=== PATIENT | female | born 1955 | race Caucasian/White ===

== ENCOUNTER 2022-07-07 13:44 | Emergency (ER) | payer MEDICARE, OTHER, SELFPAY ==
[2022-07-07 14:01] VITALS: BP 138/80; PULSE 73; RESP 20; TEMP 36.4; O2SAT 99
--- NOTE | 2022-07-07 14:13 | ED.GENADULT ---
HPI - General Adult General Chief complaint: Unspecified Stated complaint: sob Time Seen by Provider: 07/07/22 14:10 Source: patient and RN notes reviewed Mode of arrival: ambulatory Limitations: no limitations History of Present Illness HPI narrative: 66-year-old female presents to the [facility] requesting refill on her Dulera. Has tried calling her primary care provider on and Saturday and states they have not called her back or called in the refill. Is having mild symptoms of asthma but states her albuterol has been controlling it. States that she usually has better control with using her Dulera as prescribed. Denies any chest pain. No abdominal pain. Denies fevers. Related Data Home Medications Medication Instructions Recorded Confirmed Nasacort 07/07/22 albuterol sulfate 0.63 mg/3 mL 0.63 mg inhalation Q4H 07/07/22 07/07/22 solution for nebulization albuterol sulfate 90 mcg/actuation inhalation 07/07/22 aerosol inhaler azelastine 137 mcg (0.1 %) nasal intranasal 07/07/22 spray aerosol cholecalciferol (vitamin D3) 50 50 mcg PO DAILY 07/07/22 07/07/22 mcg (2,000 unit) tablet epinephrine 0.3 mg/0.3 mL 07/07/22 injection, auto-injector glucosamine sulfate 500 mg tablet 500 mg PO DAILY 07/07/22 07/07/22 (Glucosamine) levocarnitine 07/07/22 levothyroxine 25 mcg tablet mcg 07/07/22 mometasone-formoterol HFA 100 inhalation 07/07/22 mcg-5 mcg/actuation aerosol inhaler (Dulera) montelukast 10 mg tablet mg 07/07/22 triamcinolone 07/07/22 Allergies Allergy/AdvReac Type Severity Reaction Status Date / Time azithromycin Allergy Verified 07/07/22 14:33 cefdinir [From Omnicef] Allergy Verified 07/07/22 14:33 cephalexin [From Keflex] Allergy Verified 07/07/22 14:33 codeine Allergy Verified 07/07/22 14:33 erythromycin base Allergy Verified 07/07/22 14:33 [From E-Mycin] Penicillins Allergy Verified 07/07/22 14:33 Review of Systems Review of Systems: All systems reviewed & are unremarkable except as noted in HPI and below Constitutional: Constitutional: Reports no additional constitutional complaints, Denies chills and Denies fever(s) Eyes: Eyes: Reports no additional eye complaints ENT: Reports system reviewed and no additional complaints, except as documented Cardiovascular: Cardiovascular: Reports no additional cardiovascular complaints Respiratory: Respiratory: Reports no additional respiratory complaints Gastrointestinal: Gastrointestinal: Reports no additional gastrointestinal complaints Musculoskeletal: Musculoskeletal: Reports no additional musculoskeletal complaints Integumentary/Breasts: Skin/Breast: Reports system reviewed and no additional complaints, except as docu Neurologic: Reports system reviewed and no additional complaints, except as documented Psychiatric: Psychiatric: Reports no additional psychiatric complaints Allergic/Immunologic: Allergic/Immunologic: Reports no additional allergic/immunologic complaints PMFSH Past Medical History Medical History Asthma Hypothyroid Social History Social History (Updated 07/09/22 @ 10:17 by Anny Reese APRN) Gender identity (if verbalized by the patient): Female Comments At the time of my signature, I reviewed and agree with the nursing past medical, surgical, social, and family history. There is no relevant family history pertinent to the patient complaint. Exam Const: General: healthy appearing, no acute distress and alert Nutritional Appearance: well nourished Orientation/consciousness: patient oriented x3 Limitations: no limitations HENMT: Head: normal to inspection Ears: external ears normal, TM's normal bilaterally and EAC's normal Eyes: General: appearance normal, both eyes and all related structures Pupils: Equal, round and reactive pupils present Neck: Neck: normal visual inspection, no lymphadenopathy and no
== END 2022-07-07 14:37 | disposition home or self-care (01) ==
PROVIDERS: Emergency Provider Nurse Practitioner; PCP Family Medicine
DX: J45.909 Unspecified asthma, uncomplicated (principal)
CPT/HCPCS: 99202; 99203; G0463

== ENCOUNTER 2022-10-09 11:55 | Emergency (ER) | payer MEDICARE, OTHER, SELFPAY ==
[2022-10-09 12:56] VITALS: BP 146/86; PULSE 71; RESP 18; TEMP 36.2; O2SAT 98
--- NOTE | 2022-10-09 13:48 | ED.URI ---
HPI - URI/Sore Throat General Chief Complaint: Upper Respiratory Infection Stated Complaint: sorethroat,headache Time Seen by Provider: 10/09/22 13:48 Source: patient Mode of arrival: ambulatory Limitations: no limitations History of Present Illness HPI Narrative: 66-year-old female presents with complaint of nasal congestion, fatigue, sore throat for 2-3 days. Reports that Throat is burning. Grandson that lives with her recently had strep throat. Denies nausea vomiting diarrhea. Not taking any [id number] medications to treat symptoms. All systems reviewed and negative except as noted above. Related Data Home Medications Medication Instructions Recorded Confirmed albuterol sulfate 0.63 mg/3 mL 0.63 mg inhalation Q4H 07/07/22 10/09/22 solution for nebulization azelastine 137 mcg (0.1 %) nasal 2 mcg intranasal DAILY 07/07/22 10/09/22 spray aerosol cholecalciferol (vitamin D3) 50 50 mcg PO DAILY 07/07/22 10/09/22 mcg (2,000 unit) tablet glucosamine sulfate 500 mg tablet 500 mg PO DAILY 07/07/22 10/09/22 (Glucosamine) levothyroxine 25 mcg tablet 25 mcg PO DAILY 07/07/22 10/09/22 mometasone-formoterol HFA 100 2 inh inhalation DAILY 07/07/22 10/09/22 mcg-5 mcg/actuation aerosol inhaler (Dulera) montelukast 10 mg tablet 10 mg PO DAILY 07/07/22 10/09/22 Allergies Allergy/AdvReac Type Severity Reaction Status Date / Time erythromycin base AdvReac Intermediate Vomiting Verified 10/09/22 13:10 [From E-Mycin] Penicillins AdvReac Intermediate Dyspnea / Verified 10/09/22 13:10 SOB azithromycin AdvReac Mild Hives Verified 10/09/22 13:10 cefdinir [From Omnicef] AdvReac Mild Hives Verified 10/09/22 13:10 cephalexin [From Keflex] AdvReac Mild Hives Verified 10/09/22 13:10 codeine AdvReac Mild Hives Verified 10/09/22 13:10 Review of Systems Review of Systems: CONSTITUTIONAL: Denies fever, chills, or sweats. reports fatigue. EYES: Denies visual changes, redness, or discharge. ENT: Reports rhinorrhea, congestion, sore throat. Denies otalgia. CARDIOVASCULAR: Denies chest pain, palpitations, or edema. RESPIRATORY: Denies cough or dyspnea. GASTROINTESTINAL: Denies abdominal pain, nausea, vomiting, or diarrhea. GENITOURINARY: Denies dysuria or hematuria. SKIN: Denies rash or itching. MUSCULOSKELETAL: Denies back pain, joint pain, or myalgia. NEUROLOGIC: Denies headache, numbness, or weakness. PSYCHIATRIC: Denies anxiety or depression. All other systems reviewed are negative, except as documented in HPI. PMFSH Past Medical History Medical History Asthma Hypothyroid Social History Social History (Updated 07/09/22 @ 10:17 by Anny Reese APRN) Gender identity (if verbalized by the patient): Female Comments At time of signature, agree with nursing past medical, surgical, social and family history. There is no relevant family history pertinent to the presenting complaint. Exam Narrative: GENERAL: This is a well-nourished, well-developed patient . Patient ill-appearing but in no distress. HEAD: normocephalic, atraumatic. EYES: PERRL. Sclera clear/white. Vision is grossly intact. EARS: External ears normal, auditory canals clear and without drainage, Fluid to bilateral TMs without erythema. NOSE: External nose normal with Clear nasal drainage, erythema to both nares without swelling. THROAT: Mucous membranes moist, Erythema and swelling to pharynx. NECK: Neck supple, non-tender without lymphadenopathy, masses or thyromegaly. CARDIOVASCULAR: Regular rate and rhythm without murmurs, gallops, or rubs. RESPIRATORY: Clear to auscultation. Breath sounds equal bilaterally. No wheezes, rales, or rhonchi. SKIN: warm, Dry, intact with no suspicious lesions or rash, good texture and turgor. NEURO: awake, alert, and oriented to person, place and time. There were no obvious focal neurologic abnormalities. EXTREMITIES: No joint tendern
== END 2022-10-09 14:03 | disposition home or self-care (01) ==
PROVIDERS: Emergency Provider Nurse Practitioner Family; PCP Family Medicine
DX: J02.9 Acute pharyngitis, unspecified (principal); J45.909 Unspecified asthma, uncomplicated; E03.9 Hypothyroidism, unspecified
CPT/HCPCS: 87081; 87880; 99213; G0463

== ENCOUNTER 2023-04-14 13:27 | Emergency (ER) | payer MEDICARE, OTHER, SELFPAY ==
--- NOTE | 2023-04-14 13:31 | ED.URI ---
HPI - URI/Sore Throat General Chief Complaint: Upper Respiratory Infection Stated Complaint: Sore Throat Time Seen by Provider: 04/14/23 13:31 Source: patient Mode of arrival: ambulatory Limitations: no limitations History of Present Illness HPI Narrative: Edith is a 59-year-old female patient presenting to clinic today with complaints of a sore throat and nasal congestion x1 week. She reports no known fever or chills. No known exposure to anybody with COVID, flu, or strep states that she feels as though there may be something hanging in the back of her throat. MD elicited complaint: sore throat and nasal congestion Related Data Home Medications Medication Instructions Recorded Confirmed albuterol sulfate 0.63 mg/3 mL 0.63 mg inhalation Q4H 07/07/22 04/14/23 solution for nebulization azelastine 137 mcg (0.1 %) nasal 2 mcg intranasal DAILY 07/07/22 04/14/23 spray aerosol cholecalciferol (vitamin D3) 50 50 mcg PO DAILY 07/07/22 04/14/23 mcg (2,000 unit) tablet glucosamine sulfate 500 mg tablet 500 mg PO DAILY 07/07/22 04/14/23 (Glucosamine) levothyroxine 25 mcg tablet 25 mcg PO DAILY 07/07/22 04/14/23 mometasone-formoterol HFA 100 2 inh inhalation DAILY 07/07/22 04/14/23 mcg-5 mcg/actuation aerosol inhaler (Dulera) montelukast 10 mg tablet 10 mg PO DAILY 07/07/22 04/14/23 Allergies Allergy/AdvReac Type Severity Reaction Status Date / Time erythromycin base AdvReac Intermediate Vomiting Verified 04/14/23 13:41 [From E-Mycin] Penicillins AdvReac Intermediate Dyspnea / Verified 04/14/23 13:41 SOB azithromycin AdvReac Mild Hives Verified 04/14/23 13:41 cefdinir [From Omnicef] AdvReac Mild Hives Verified 04/14/23 13:41 cephalexin [From Keflex] AdvReac Mild Hives Verified 04/14/23 13:41 codeine AdvReac Mild Hives Verified 04/14/23 13:41 Review of Systems Review of Systems: Pertinent positives per HPI. Patient denies any fever, chills, rash, headache, visual changes, dizziness, cough, shortness of breath, chest pain, palpitations, nausea, vomiting, diarrhea, constipation, abdominal pain, or any urinary issues. [facility] Past Medical History Medical History Asthma Hypothyroid Social History Social History Gender identity (if verbalized by the patient): Female Comments At the time of my signature, I reviewed and agree with the nursing past medical, surgical, social, and family history. There is no relevant family history pertinent to the patient complaint. Exam Narrative: General: Well-developed, obese, in no apparent distress Head: Normocephalic, atraumatic Eyes: Pupils equally round and reactive to light bilaterally, EOM intact, sclera and conjunctive clear, no discharge, lids normal Ears: TMs intact and congested, ear canals clear, no drainage, grossly hearing normal. Nose: Nares patent, clear discharge, no inflammation, no sinus tenderness. Mouth: Oral pharynx red without lesions or masses, good dentition, MMM. Postnasal drip Neck: Supple, trachea midline, no enlargement of anterior or posterior cervical nodes, no thyroid masses or goiter palpable. Cardio: Regular rate and rhythm, s1 and s2 normal, no murmur appreciated. Resp: Clear to auscultation bilaterally, no rhonchi, rales, wheezing or rubs Course Course Emergency Course: Portions of this record may have been created with voice recognition software. Level of Care: Express Care Visit Vital Signs Vital signs: Vital signs reviewed MDM - URI/Sore Throat MDM Narrative Medical decision making narrative: At the time of visit patient is resting comfortably on exam table. Strep screen was obtained Differential Diagnosis Differential diagnosis: Likely upper respiratory infection, otitis media, sinusitis, viral infection, bronchitis, influenza, pharyngitis and other (COVID) Discharge Plan Discha
[2023-04-14 13:35] VITALS: BP 149/77; PULSE 73; RESP 18; TEMP 36.4; O2SAT 97
== END 2023-04-14 13:53 | disposition home or self-care (01) ==
PROVIDERS: Emergency Provider Nurse Practitioner Family; PCP Family Medicine
DX: J06.9 Acute upper respiratory infection, unspecified (principal); J02.9 Acute pharyngitis, unspecified; J45.909 Unspecified asthma, uncomplicated; E03.9 Hypothyroidism, unspecified
CPT/HCPCS: 87081; 87880; 99213; G0463

== ENCOUNTER 2023-10-31 13:56 | Emergency (ER) | payer MEDICARE, OTHER, SELFPAY ==
--- NOTE | 2023-10-31 14:03 | ED.GENADULT ---
HPI - General Adult General Chief complaint: Upper Respiratory Infection Stated complaint: sorethroat Time Seen by Provider: 10/31/23 14:05 Source: patient, RN notes reviewed and old records reviewed Mode of arrival: ambulatory Limitations: no limitations History of Present Illness HPI narrative: 59-year-old female presents to [facility] with complaints sore throat, congestion, myalgia that started today. Patient states grandson had strep and that she has been around him. MD complaint: sore throat Onset (ago): day(s) (1-2) Related Data Home Medications Medication Instructions Recorded Confirmed albuterol sulfate 0.63 mg/3 mL 0.63 mg inhalation Q4H 07/07/22 10/31/23 solution for nebulization azelastine 137 mcg (0.1 %) nasal 2 mcg intranasal DAILY 07/07/22 10/31/23 spray aerosol cholecalciferol (vitamin D3) 50 50 mcg PO DAILY 07/07/22 10/31/23 mcg (2,000 unit) tablet glucosamine sulfate 500 mg tablet 500 mg PO DAILY 07/07/22 10/31/23 (Glucosamine) levothyroxine 25 mcg tablet 25 mcg PO DAILY 07/07/22 10/31/23 mometasone-formoterol HFA 100 2 inh inhalation DAILY 07/07/22 10/31/23 mcg-5 mcg/actuation aerosol inhaler (Dulera) Allergies Allergy/AdvReac Type Severity Reaction Status Date / Time erythromycin base AdvReac Intermediate Vomiting Verified 04/14/23 13:41 [From E-Mycin] Penicillins AdvReac Intermediate Dyspnea / Verified 04/14/23 13:41 SOB azithromycin AdvReac Mild Hives Verified 04/14/23 13:41 cefdinir [From Omnicef] AdvReac Mild Hives Verified 04/14/23 13:41 cephalexin [From Keflex] AdvReac Mild Hives Verified 04/14/23 13:41 codeine AdvReac Mild Hives Verified 04/14/23 13:41 Review of Systems Constitutional: Constitutional: Reports no additional constitutional complaints, Reports body ache(s), Denies chills, Denies fatigue and Denies fever(s) Eyes: Eyes: Reports no additional eye complaints ENT: Reports system reviewed and no additional complaints, except as documented, Denies vertigo, Denies dizziness, Denies ear discharge, Denies otalgia, Reports nasal congestion, Denies nasal discharge, Denies sinus pain and Reports sore throat Cardiovascular: Cardiovascular: Reports no additional cardiovascular complaints, Denies chest pain, Denies chest pain at rest and Denies lightheadedness Respiratory: Respiratory: Reports no additional respiratory complaints, Denies chest congestion, Reports cough, Denies pain on inspiration and Denies dyspnea Gastrointestinal: Gastrointestinal: Denies abdominal pain Neurologic: Reports system reviewed and no additional complaints, except as documented PMFSH Past Medical History Medical History Asthma Hypothyroid Social History Social History Gender identity (if verbalized by the patient): Female Comments At the time of my signature, I reviewed and agree with the nursing past medical, surgical, social, and family history. There is no relevant family history pertinent to the patient complaint. Exam Const: General: cooperative, healthy appearing, no acute distress and well nourished Nutritional Appearance: well nourished Orientation/consciousness: patient oriented x3 Limitations: no limitations HENMT: Head: normal to inspection and normocephalic Ears: external ears normal, TM's normal bilaterally, mastoids normal and Abnormal EAC present Face/Nose/Sinus: normal facial exam Face and sinus: normal facial exam Mouth: Yes Normal oral and palatal mucosa present, Yes oropharynx normal and Yes moist mucous membranes Throat: tonsils normal, uvula midline, posterior oropharynx abnormal erythema and no uvular edema Eyes: General: appearance normal, both eyes and all related structures Sclera: sclerae normal Pupils: Equal, round and reactive pupils present Resp: Effort & Inspection: normal respiratory effort, able to speak in complete s
[2023-10-31 14:08] VITALS: BP 132/65; PULSE 88; RESP 18; TEMP 36.6; O2SAT 93
== END 2023-10-31 14:42 | disposition home or self-care (01) ==
PROVIDERS: Emergency Provider Registered Nurse; PCP Family Medicine
DX: J02.0 Streptococcal pharyngitis (principal); E03.9 Hypothyroidism, unspecified; Z79.899 Other long term (current) drug therapy
CPT/HCPCS: 87880; 99213; G0463

== ENCOUNTER 2024-08-03 13:36 | Emergency (ER) | payer MEDICARE, OTHER, SELFPAY ==
[2024-08-03 13:47] VITALS: BP 143/71; PULSE 73; RESP 18; TEMP 36.6; O2SAT 96
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
== END 2024-08-03 14:03 | disposition home or self-care (01) ==
PROVIDERS: Emergency Provider Nurse Practitioner Family; PCP Family Medicine
DX: J45.901 Unspecified asthma with (acute) exacerbation (principal); E03.9 Hypothyroidism, unspecified
CPT/HCPCS: 99213; G0463

== ENCOUNTER 2024-12-21 17:29 | Emergency (ER) | payer MEDICARE, OTHER, SELFPAY ==
--- OUTSIDE RECORDS SUMMARY | 2024-12-21 17:31 | XMS_ITS | Referral Summary ---
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 Family Medicine at [address] [place] [address] Pierre Otto MD 12/04/2024 1:15 PM LUMBER CHECKER - 12/04/2024 11:59 PM LUMBER CHECKER Hospital Encounter [facility] Breast Imaging [address] [place] [phone] Breast cancer screening by mammogram Discharge Disposition: Discharge to home or self care 11/02/2024 12:53 PM LUMBER CHECKER - 11/02/2024 11:59 PM LUMBER CHECKER Hospital Encounter [facility] Ultrasound [address] [place] [phone] Fatty liver Discharge Disposition: Discharge to home or self care 10/26/2024 12:45 PM LUMBER CHECKER Office Visit [facility] Family Medicine at [address] [place] [address] Pierre Otto MD Medicare annual wellness visit, subsequent (Primary Dx); Breast cancer screening by mammogram; Class 3 severe obesity due to excess calories without serious comorbidity with body mass index (BMI) of 40.0 to 44.9 in adult (HCC) 09/28/2024 Telephone [facility] Medical [facility] Family Medicine at [address] [place] [address] Pierre Otto MD Symptom Based Call from Last 3 Months Allergies Active Allergy Reactions Criticality Noted Date Comments Azithromycin Rash Medium 05/04/2019 Rash Cefdinir Rash Medium 05/04/2019 Rash Cephalexin Shortness of breath High 05/04/2019 Rash, SOB Codeine Phosphate Vomiting Low 05/04/2019 GI Upset, Vomit Erythromycin Vomiting Low 05/04/2019 GI Upset, vomit Neomycin Sulfate Swelling Medium 05/04/2019 Swelling Other Other (See comments) Low 07/13/2022 Cats, cevallos ??pork Allergy testing [place] and corn products GI upset Penicillamine Shortness of breath High 05/04/2019 Rash, SOB Tramadol Nausea & Vomiting Low 07/17/2023 Medications triamcinolone (NASACORT) 55 mcg nasal inhaler Administer 1 spray into each nostril daily Active levocetirizine (XYZAL) 5 mg tablet Take 1 tablet (5 mg total) by mouth daily Active glucosamine-glory droitin 500-400 mg tablet Take 1 tablet by mouth daily Active cholecalciferol (VITAMIN D-3) 2000 unit capsule Take 1 capsule (2,000 Units total) by mouth nightly Active acetaminophen ER (TYLENOL) 650 mg 8 hr tablet Take 2 tablets (1,300 mg total) by mouth 2 (two) times a day Active vitamin E 400 unit capsule Take 2 capsules (800 Units total) by mouth daily Active calcium carbonate (CALCIUM 600 ORAL) Take 1,200 Units by mouth daily Active magnesium oxide (MAG-OX) 400 mg (241.3 mg elemental magnesium) tabletIndication s:hypomagnesemia Take 1 tablet (400 mg total) by mouth daily Active therapeutic multivitamin (THERA) tabletIndication s:Vitamin Deficiency Prevention Take 1 tablet by mouth daily Active albuterol HFA (PROVENTIL HFA,VENTOLIN HFA,PROAIR HFA) 90 mcg/actuation inhalerIndicatio ns:Moderate persistent asthma without complication Inhale 2 puffs every 6 (six) hours as needed for wheezing 8.5 g 11 4 Active azelastine (ASTELIN) 137 mcg (0.1 %) nasal spray Administer 1 spray into each nostril 2 (two) times a day Use in each nostril as directed 30 mL 3 4 Active montelukast (SINGULAIR) 10 mg tabletIndication s:Seasonal allergies Take 1 tablet (10 mg total) by mouth daily 90 tablet 3 4 Active mometasone-formo terol (DULERA 200) 200-5 mcg/actuation inhalerIndicatio ns:Moderate persistent asthma without complication Inhale 2 puffs 2 (two) times a day Rinse mouth with water after use. Do not swallow. 3 each 3 4 025 Active levothyroxine (SYNTHROID) 25 mcg tabletIndication s:Hypothyroidism , unspecified type Take 1 tablet (25 mcg total) by mouth daily 90 tablet 3 4 Active EPINEPHrine 0.3 mg/0.3 mL auto-injection syringeIndicatio ns:Anaphylaxis Inject 0.3 mL (0.3 mg total) into the muscle as instructed as needed for anaphylaxis Call 911 after use. 1 each 5 4 025 Active albuterol 0.63 mg/3 mL nebulizer solution Take 3 mL (0.63 mg total) by nebulization every 6 (six) hours as needed for wheezing (pt unsure of dose & frequency) 75 mL 1 4 Active Active Problems Problem Noted Date Diagnosed Date Chronic pain of both knees 07/22/2024 Acute right-sided low back pain with right-sided sciatica 04/24/2023 Assessment & Plan (04/24/2023 1:55 PM CDT): Medrol dose pack Tramadol 50 mg tid prn no 30 Right calf pain 04/24/2023 Assessment & Plan (04/24/2023 1:55 PM CDT): Acute pain right calf Order a venous doppler Medicare annual wellness visit, subsequent 05/22 Assessment & Plan (10/26/2024 12:48 PM LUMBER CHECKER): Patient here for annual Medicare wellness visit and for review of complete medical problem list. All the elements of the plan were completed as outlined by CMS. A copy of the prevention plan was given to the patient. I reviewed Medicare Wellness Questionnaire (other physicians involved in care, depression screen, advanced directives), cognitive/memory, and functional assessment. Forms scanned in progress notes. I reviewed and updated the complete problem list, medication list, family history, and immunization records with the patient. I provided preventive counseling and early detection interventions to the patient through health maintenance update and summary of today's office visit. Personalized Prevention Plan Services (PPPS): Opioid Use: No Immunization: Immunization History Administered Date(s) Administered Flucelvax Influenza Quad 11/25/2017 Influenza, Quad, Adjuvantated, Intramuscular 07/11/2020, 08/25/2021 Influenza, Quadrivalent, Cell Culture-based MDCK, Antibiotic Free, Intramuscular 11/01/2018 Influenza, Quadrivalent, High Dose, Preservative Free, Intrr 08/25/2021 Influenza, Quadrivalent, Split, Intramuscular 11/01/2018 Influenza, Trivalent, Preservative Free, Intramuscular 09/08/2015, 07/11/2020 Influenza, Unspecified 02/06/2023 TrustID SARS-CoV-2 Monovalent Vaccination (12+ Yrs) PURPLE 01/09/2021, 01/30/2021 Pneumococcal Conjugate PCV 13 05/22/2022 Pneumococcal Polysaccharide PPV23 11/03/2020 Tdap 12/02/2015 HepatitisB: Not Applicable. Tetanus: Highly Recommended Shingles: Highly Recommended RSV: Highly Recommended Cancer Screening: Mammogram: Not Applicable. PAP Smear: Not Applicable. Prostate Cancer Screening: Not Applicable. Colorectal Cancer Screening: UTD . Lung Cancer Screening: Not Applicable. Others: Diet: Lifestyle education regarding diet discussed. Exercise: Encouraged regular daily exercise. Medication Use: Aspirin use discussion. DEXA Scan: Not Applicable. Glaucoma Screening: Recommended Annually. Audio Screen ordered? No Diabetes: Not Applicable. Annual Labs: Ordered For Today. Abdominal Aortic Aneurysm Screening: Not Applicable. HIV Screening: Not Applicable. Smoking cessation Counselling: Not Applicable. Subsequent Annual Wellness Visit: Annually Assessment & Plan (07/17/2023 11:56 AM CDT): Meds reviewed and reconciled Assessment & Plan (05/22/2022 10:43 AM CDT): Chart reviewed Class 3 severe obesity due t o excess calories without serious comorbidity with body mass index (BMI) of 40.0 to 44.9 in adult 05/22/2022 Assessment & Plan (07/22/2024 10:11 AM CDT): Recommended aggressive Lifestyle modification and weight loss for improving overall weight related health conditions. Follow up in 1 or 3 months for continuing Lifestyle Medicine education and management visit. Recommend Lifestyle/Nutrition/Weight Loss Seminar on every other Tuesdays @ 5pm. Assessment & Plan (07/01/2024 12:03 PM CDT): Recommended aggressive Lifestyle modification and weight loss for improving overall weight related health conditions. Follow up in 1 or 3 months for continuing Lifestyle Medicine education and management visit. Recommend Lifestyle/Nutrition/Weight Loss Seminar on every other Tuesdays @ 5pm. Assessment & Plan (04/24/2023 1:54 PM CDT): Healthy diet Weight loss Assessment & Plan (02/06/2023 9:21 AM CDT): Healthy diet Weight loss Assessment & Plan (05/22/2022 10:44 AM CDT): Healthy diet Regular exercise Weight loss Chronic pain of both hips 11/14/2021 Assessment & Plan (11/14/2021 12:22 PM LUMBER CHECKER): X ray left hip Full code status 05/12/2021 Assessment & Plan (05/12/2021 11:29 AM CDT): Discussed with patient approximately 20minutes End of life issues/Advanced Directives/Healthcare Surrogate. Discussed DNR. Encouraged to discuss further with family and consult business machine mechanic or complete [place] approved form, which I would be glad to assist them with completion. All questions answered. polst form filled out and signed Arthritis 04/07/2018 Assessment & Plan (11/03/2020 1:49 PM LUMBER CHECKER): Patient is well controlled. Continue current treatment. X ray hands Assessment & Plan (05/05/2020 1:48 PM CDT): Tylenol arthritis Prn nsaid prn Moderate persistent asthma without complication 04/07/2018 Assessment & Plan (02/06/2023 9:28 AM CDT): Patient is not well controlled Increase dulera to 200 Assessment & Plan (07/11/2022 10:24 AM CDT): Changed Dulera script back to 2 puffs BID as it was accidentally changed previously. Continue albuterol PRN. Assessment & Plan (11/14/2021 12:13 PM LUMBER CHECKER): Refill albuterol Assessment & Plan (11/03/2020 1:45 PM LUMBER CHECKER): stable Assessment & Plan (05/05/2020 1:47 PM CDT): Albuterol prn Refill epipen Cont singulair Assessment & Plan (11/04/2019 1:29 PM LUMBER CHECKER): Stable No new orders Assessment & Plan (05/06/2019 1:39 PM CDT): Patient is well controlled. Continue current treatment. Hypothyroidism 04/07/2018 Assessment & Plan (07/17/2023 11:56 AM CDT): Tsh and free t4 Assessment & Plan (02/06/2023 9:22 AM CDT): Patient is well controlled. Continue current treatment. Continue synthroid Assessment & Plan (05/22/2022 10:45 AM CDT): tsh and free t4 Assessment & Plan (11/14/2021 12:13 PM LUMBER CHECKER): tsh and free t4 6 months Assessment & Plan (05/12/2021 11:30 AM CDT): Check a tsh and free t4 Assessment & Plan (11/03/2020 1:45 PM LUMBER CHECKER): Lab in 6 months Assessment & Plan (05/05/2020 1:47 PM CDT): lab Assessment & Plan (11/04/2019 1:28 PM LUMBER CHECKER): Check lab in 6 months Assessment & Plan (05/06/2019 1:39 PM CDT): Patient is well controlled. Continue current treatment. Seasonal allergies 04/07/2018 Assessment & Plan (11/14/2021 12:14 PM LUMBER CHECKER): Refill singulair Assessment & Plan (11/03/2020 1:45 PM LUMBER CHECKER): Patient is well controlled. Continue current treatment. Assessment & Plan (11/04/2019 1:29 PM LUMBER CHECKER): Patient is well controlled. Continue current treatment. Resolved Problems Problem Noted Date Diagnosed Date Resolved Date Sore throat 03/11/2023 04/24/2023 Upper respiratory tract infection 03/11/2023 04/24/2023 Assessment & Plan (03/11/2023 8:00 PM CDT): Rapid COVID, flu negative. PCR pending Rapid strep negative. Throat culture pending VSS, no acute respiratory distress, lungs CTAB Symptoms and duration of symptoms more c/w likely viral URI Mucinex for cough and drainage OTC Flonase and zyrtec Discussed the life expectancy of a viral illness is 7 to 10 days. Discussed supportive measures including increase fluid intake, rest, use of Tylenol/Motrin for discomfort and/or fevers. Recommend using drug-free nasal saline every 3-4 hours with frequent nose blowing to alleviate nasal congestion or OTC Flonase and honey +/- warm tea to alleviate cough/sore throat. Instructed to use good handwashing within the household. Patient understands and agrees with treatment plan. Call or return to clinic with any questions or concerns. Patient verbalizes understanding and agreeable to plan. Moderate persistent asthma with exacerbation 04/24/2023 Assessment & Plan (11/13/2022 10:09 AM LUMBER CHECKER): Medrol dose pack, take as directed on package Use albuterol inhaler for wheezing as needed every 4 hours Go to ER if worsening shortness of breath/trouble breathing Upper respiratory tract infection 11/13/2022 02/06/2023 Assessment & Plan (11/13/2022 10:10 AM LUMBER CHECKER): Rapid covid and flu negative PCR pending Doxycycline twice daily for 7 days -Tylenol or Ibuprofen for aches, pains. Take per package directions -Antihistamines like Claritin or Benadryl as needed for drainage. Take per package directions -Delsym as needed for coughing. Follow package directions -Frequent cough drops and lozenges -Increase fluids, especially decaffeinated ones -Sleep with head of bed raised to promote drainage -Flonase to promote drainage -Avoid spreading the virus by remaining at home and away from others until you are fever-free (temperature below 100) for 24 hours. Good handwashing and covering your mouth when coughing are also important. If you are not improving or worsening in the next 5-7 days you must RETURN to the clinic, go to your PCP, or Urgent Care/ER to be SEEN and reevaluated. No further prescriptions or refills will be given by phone without another evaluation. If you develop a high fever 103+, neck stiffness, trouble breathing, chest pain, or other life threatening symptoms GO TO THE ER IMMEDIATELY. Epigastric pain 11/14/2021 05/22/2022 Assessment & Plan (11/14/2021 12:20 PM LUMBER CHECKER): Order a us abdomen Immunizations Name Administration Dates Next Due Flucelvax Influenza Quad 11/25/2017 Influenza, Quad, Adjuvantate d, Intramuscular 08/25/2021,07/11/2020 Influenza, Quadrivalent, Krystal l Culture-based MDCK, Antibiotic Free, Intramuscular 11/01/2018 Influenza, Quadrivalent, Hig h Dose, Preservative Free, Intrr 08/25/2021 Influenza, Quadrivalent, Spl it, Intramuscular 11/01/2018 Influenza, Trivalent, Preser vative Free, Intramuscular 07/11/2020,09/08/2015 Influenza, Unspecified 07/22/2024(Deferr ed: Patient decision),02/06/2023 Pneumococcal Conjugate PCV 13 05/22/2022 Pneumococcal Polysaccharide PPV23 11/03/2020 Tdap 12/02/2015 Social History Tobacco Use Types Packs/Day Years Used Date Smoking Tobacco: Never Cigarettes Smokeless Tobacco: Never Tobacco Cessation:Counseling Given: Not Answered Alcohol Use Standard Drinks/Week Comments Never 0 (1 standard drink = 0.6 oz pur e alcohol) AUDIT-C Answer Date Recorded Q1: How often do you have a drink containing alcohol? Never 07/22/2024 Q2: How many drinks containi ng alcohol do you have on a typical day when you are drinking? Patient does not drink Q3: How often do you have si x or more drinks on one occasion? Never 07/22/2024 PHQ-2 Answer Date Recorded PHQ-2 Total Score (If total score is 3 or more points, staff should administer the PHQ-9) 0 10/22/2024 Comments No Sex and Gender Information Value Date Recorded Sex Assigned at Not on file Legal Sex Female 9:13 PM LUMBER CHECKER Gender Identity Female 05/02/2023 4:53 PM CDT Sexual Orientation Not on file Last Filed Vital Signs Vital Sign Reading Time Taken Comments Blood Pressure 132/86 10/26/2024 12:35 PM LUMBER CHECKER Pulse 73 10/26/2024 12:35 PM LUMBER CHECKER Temperature 36.7 ??C (98.1 ??F) 10/26/2024 1 2:35 PM LUMBER CHECKER Respiratory Rate 18 10/26/2024 12:3 5 PM LUMBER CHECKER Oxygen Saturation 97% 10/26/2024 12: 35 PM LUMBER CHECKER Inhaled Oxygen Concentration - - Weight 107.1 kg (236 lb 1.6 oz) 024 12:35 PM LUMBER CHECKER Height 162.6 cm (5' 4 ) 10/26/2024 12:3 5 PM LUMBER CHECKER Body Mass Index 40.53 10/26/2024 12:35 PM LUMBER CHECKER Plan of Treatment Not on file Procedures Procedure Name Priority Date/Time Associated Diagnosis Comments SCREENING MAMMOGRAM BILATERAL W JANIS Schedule Routine, Read Routine (OP Routine) 12/04/2024 1:59 PM LUMBER CHECKER Breast cancer screening by mammogram US RUQ Schedule Routine, Read Routine (OP Routine) 11/02/2024 1:18 PM LUMBER CHECKER Fatty liver DEXA AXIAL SKELETON BONE DENSITY 1 OR MORE SITES Schedule Routine, Read Routine (OP Routine) 05/01/2023 10:51 AM CDT Menopausal and postmenopausal disorder Asymptomatic menopausal state COLONOSCOPY Routine 12/08/2021 HEPATITIS C ANTIBODY Routine 11/30/2021 10:32 AM LUMBER CHECKER from Last 3 Months or Most Recently Relevant to Health Maintenance Results * SCREENING MAMMOGRAM BILATERAL W JANIS (12/04/2024 1:59 PM LUMBER CHECKER) Anatomical Region Laterality Modality Breast Bilateral Mammography Impressions 12/04/2024 2:02 PM LUMBER CHECKER BI-RADS?? ATLAS category (overall): 1 - Negative There is no mammographic evidence of malignancy. A 1 year screening mammogram is recommended. The patient has been or will be contacted. We recommend annual screening mammography for women at average risk of breast cancer beginning at age 40, based on guidelines of the [employer] (ACR Practice Parameter for the Performance of Screening and Diagnostic Mammography) and [employer]. For women with and elevated risk of breast cancer, please refer to the ACR Practice Parameter for specific screening recommendations. The patient will be entered into a reminder system with a target due date of 1 year for her next screening exam. Narrative 12/04/2024 2:02 PM LUMBER CHECKER SCREENING MAMMOGRAM BILATERAL W JANIS: 12/04/24 The study was acquired using full field digital technology and interpreted from soft copy. 2D digital mammographic views, as well as 3D digital tomosynthesis were performed in the CC and MLO projections. CLINICAL: ??Breast cancer screening by mammogram ??No relevant medical history has been documented for this patient. ??History of breast cancer in Neg Hx. COMPARISONS: 08/06/2023 Screening Mammogram Bilateral W Janis 02/02/2022 SCREENING MAMMOGRAM BILATERAL W JANIS 05/11/2019 Screening Mammogram Bilateral W Janis 09/06/2017 Breast Imaging Screening Outside Reference 03/07/2016 Breast Imaging Screening Outside Reference BREAST TISSUE: The breasts are almost entirely fatty. FINDINGS: No suspicious masses, suspicious calcifications, or other suspicious findings are seen within either breast. There has been no suspicious change. us Pierre Otto MD [facility] [place] MAMMO PROCEDURES Final Resul t * US RUQ (11/02/2024 1:18 PM LUMBER CHECKER) Anatomical Region Laterality Modality Abdomen N/A Ultrasound 11/06/2024 12:3 2 PM LUMBER CHECKER Narrative 11/06/2024 12:33 PM LUMBER CHECKER EXAM DESCRIPTION: ?? US RUQ REASON FOR STUDY: ?? fatty liver for 3 years, follow-up. TECHNIQUE: Ultrasound of the right upper quadrant of the abdomen was performed with grayscale and color doppler. COMPARISON: ?? 01/15/2023 FINDINGS: PANCREAS: ?? Visualized portions of the pancreas are within normal limits. Portions of the pancreatic body and tail are obscured due to bowel gas. LIVER: ?? The liver demonstrates an increase in echotexture with attenuation of the ultrasound beam characteristic of fatty infiltration. ??No cystic or solid mass lesions were seen within the liver. GALLBLADDER: ?? Gallbladder surgically absent. ?? BILIARY: ?? There is no intrahepatic or extrahepatic biliary ductal dilatation. Common bile duct measures ??5 mm ??in diameter. RIGHT KIDNEY: ?? Normal size. Normal echogenicity. No solid mass or cyst. ??No hydronephrosis. ??Measures ??11.6 ??cm in length. OTHER: ?? No other significant findings. IMPRESSION: Fatty infiltration of the liver. Surgical absence of the gallbladder. THIS IS AN ELECTRONICALLY VERIFIED FINAL REPORT 11/06/2024 12:33 PM - Electronically signed by ??Nabil Alvarez M.D. KT: PARMINDER D: ??11/06/2024 12:33 PM T: ??11/06/2024 12:33 PM Report ID: [id number] Reading Location: ??[id number] Procedure Note Nabil Alvarez MD - 11/06/2024 EXAM DESCRIPTION: US RUQ REASON FOR STUDY: fatty liver for 3 years, follow-up. TECHNIQUE: Ultrasound of the right upper quadrant of the abdomen wasperformed with grayscale and color doppler. COMPARISON: 01/15/2023 FINDINGS: PANCREAS: Visualized portions of the pancreas are withinnormal limits. Portions of the pancreatic body and tail are obscured due to bowel gas. LIVER: The liver demonstrates an increase in echotexture withattenuation of the ultrasound beam characteristic of fatty infiltration. No cystic orsolid mass lesions were seen within the liver. GALLBLADDER: Gallbladder surgically absent. BILIARY: There is no intrahepatic or extrahepatic biliary ductaldilatation. Common bile duct measures 5 mm in diameter. RIGHT KIDNEY: Normal size. Normal echogenicity. No solid mass or cyst.No hydronephrosis. Measures 11.6 cm in length. OTHER: No other significant findings. IMPRESSION: Fatty infiltration of the liver. Surgical absence of the gallbladder. THIS IS AN ELECTRONICALLY VERIFIED FINAL REPORT 11/06/2024 12:33 PM - Electronically signed by Nabil Alvarez M.D. KT: PARMINDER Report ID: [id number] Reading Location: [place] [address] us Gina Hill MD IMG US PROCEDURES Final R esult * Dexa Axial Skeleton Bone Density 1 or 2 Site (05/01/2023 10:51 AM CDT) Anatomical Region Laterality Modality Body N/A Mammography 05/01/2023 12:3 3 PM CDT Narrative 05/01/2023 12:33 PM CDT EXAM DESCRIPTION: DEXA AXIAL SKELETON BONE DENSITY 1 OR MORE SITES REASON FOR STUDY: 67 y/o ?? year old ??F ??with given history of screening. ?? Medical Technologist Microbiology/Model: [employer] A (S/N [id number]) CLINICAL INFORMATION: Current height: ??62.5 ??inches ? Maximum height: ??64 ??inches ? Weight: ??226 ??pounds Risk factors: ??Prior fracture and parent with hip fracture COMPARISON: None available FINDINGS: AP LUMBAR SPINE L1-L4: Total BMD is 1.126 g/cm2 T-score is 0.7 LEFT HIP: Total BMD is 0.892 g/cm2 T-score is -0.4 Femoral neck BMD is 0.72 g/cm2 T-score is 4-1.1 ?? FRAX: 10 year risk for a major osteoporotic fracture is 21 %, 10 year risk for a hip fracture is 1.8 % IMPRESSION: Low bone mass REFERENCE: Bone mineral density: ? Normal (T-score above or = -1.0) ? Low bone mass ??(T-score between -1.0 and -2.5) replaces the previously used term osteopenia ? Osteoporosis (T-score = or below -2.5) Medical evaluation for secondary causes of low bone mineral density may be appropriate. FRAX is a World Health Organization validated fracture risk assessment tool that calculates a person's 10 year probability of a major osteoporosis related fracture and hip fracture. ??According to the National Osteoporosis Foundation guidelines, postmenopausal women and men age 50 or older with low bone mass and a 10 year probability of a major osteoporosis related fracture = or greater than 20% or a 10 year probability of a hip fracture = or greater than 3% should be considered for treatment. For further information, including treatment recommendations, please refer to the 2019 ISCD Official Positions (http://www.iscd.org) and the NOF's Clinician's Guide to Prevention and Treatment of Osteoporosis (http://www.nof.org/professionals/clinical-guidelines) THIS IS AN ELECTRONICALLY VERIFIED FINAL REPORT 05/01/2023 12:33 PM - Electronically signed by ??Fabiana Vigil M.D. TW: TW D: ??05/01/2023 12:33 PM T: ??05/01/2023 12:33 PM Report ID: [id number] Reading Location: ??[id number] Procedure Note Fabiana Vigil MD - 05/01/2023 EXAM DESCRIPTION: DEXA AXIAL SKELETON BONE DENSITY 1 OR MORE SITES REASON FOR STUDY: 67 y/o year old F with given history of screening. Medical Technologist Microbiology/Model: [employer] A (S/N [id number]) CLINICAL INFORMATION: Current height: 62.5 inches Maximum height: 64 inches Weight: 226 pounds Risk factors: Prior fracture and parent with hip fracture COMPARISON: None available FINDINGS: AP LUMBAR SPINE L1-L4: Total BMD is 1.126 g/cm2 T-score is 0.7 LEFT HIP: Total BMD is 0.892 g/cm2 T-score is -0.4 Femoral neck BMD is 0.72 g/cm2 T-score is 4-1.1 FRAX: 10 year risk for a major osteoporotic fracture is 21 %, 10 year risk for ahip fracture is 1.8 % IMPRESSION: Low bone mass REFERENCE: Bone mineral density: Normal (T-score above or = -1.0) Low bone mass (T-score between -1.0 and -2.5) replaces thepreviously used term osteopenia Osteoporosis (T-score = or below -2.5) Medical evaluation for secondary causes of low bone mineral density may be appropriate. FRAX is a World Health Organization validated fracture risk assessmenttool that calculates a person's 10 year probability of a major osteoporosisrelated fracture and hip fracture. According to the National OsteoporosisFoundation guidelines, postmenopausal women and men age 50 or older with low bonemass and a 10 year probability of a major osteoporosis related fracture = or greater than 20% or a 10 year probability of a hip fracture = or greaterthan 3% should be considered for treatment. For further information, including treatment recommendations, please referto the 2019 ISCD Official Positions (http://www.iscd.org) and the NOF's Clinician's Guide to Prevention and Treatment of Osteoporosis (http://www.nof.org/professionals/clinical-guidelines) THIS IS AN ELECTRONICALLY VERIFIED FINAL REPORT 05/01/2023 12:33 PM - Electronically signed by Fabiana Vigil M.D. TW: NANDO Report ID: [id number] Reading Location: [place] [address] Rich Mohr DO IMG DXA PROCEDURES Final Result * Colonoscopy (12/08/2021) Anatomical Region Laterality Modality Other Rich Mohr DO ENDOSCOPY PROCEDURES Fin al Result * Hepatitis C antibody (11/30/2021 10:32 AM LUMBER CHECKER) Pathologist [facility] [place] Hep C Ab Nonreactive Nonreactive RONN Comment: Interpretive Data Nonreactive: Antibodies to HCV not detected. Does NOT exclude the possibility of recent exposure to HCV. Equivocal: Equivocal for HCV antibodies. Supplemental molecular testing will be automatically performed to determine infection status in accordance with current CDC screening recommendations. ?? Reactive: Positive for HCV antibodies. ??This may represent current or past HCV infection. Supplemental molecular testing will be automatically performed to determine ??current infection status in accordance with current CDC screening recommendations. Interpretive data was last revised on 2020. Blood 11/30/2021 10:3 2 AM LUMBER CHECKER 11/30/2021 10:36 AM LUMBER CHECKER Gina Hill MD LAB MICROBIOLOGY - GENERA L ORDERABLES Final Result RONN [address] [facility] [place] [address] from Last 3 Months or Most Recently Relevant to Health Maintenance Insurance MEDICARE [facility] MEDICARE [facility] Advance Directives For more information, please contact: [phone] Documents on File Type Date Recorded Patient Coating Line Worker Expl anation ADVANCE DIRECTIVE 05/17/2021 9:19 PM Care Teams Friction Saw Operator Relationship Specialty Start Date End Date Pierre Otto MD [address] [facility] [address] [place] [id number] PCP - General Family Medicine 02/19/24
--- OUTSIDE RECORDS SUMMARY | 2024-12-21 17:31 | XMS_ITS | Clinical Summary ---
Author Organization [facility] Address [address] [place] [address] Care Team Providers Care Client Manager Name Role Phone Pierre Otto MD Primary Care Provider [phone] Allergies Active Allergy Reactions Criticality Noted Date Comments Azithromycin Rash Medium 05/04/2019 Rash Cefdinir Rash Medium 05/04/2019 Rash Cephalexin Shortness of breath High 05/04/2019 Rash, SOB Codeine Phosphate Vomiting Low 05/04/2019 GI Upset, Vomit Erythromycin Vomiting Low 05/04/2019 GI Upset, vomit Neomycin Sulfate Swelling Medium 05/04/2019 Swelling Other Other (See comments) Low 07/13/2022 Cats, cevallos ??pork Allergy testing [place] and corn products GI upset Penicillamine Shortness [...] 05/22 Assessment & Plan (10/26/2024 12:48 PM DESIGN ENGINEER PRODUCTS): Patient here for annual Medicare wellness visit [...] Free, Intramuscular 09/08/2015, 07/11/2020 Influenza, Unspecified 02/06/2023 PushPage SARS-CoV-2 Monovalent Vaccination (12+ Yrs) PURPLE 01/09/2021, [...] 11/14/2021 Assessment & Plan (11/14/2021 12:22 PM DESIGN ENGINEER PRODUCTS): X ray left hip Full code status 05/12/2021 Assessment & Plan (05/12/2021 11:29 AM CDT): Discussed with patient approximately 20minutes End of life issues/Advanced Directives/Healthcare Surrogate. Discussed DNR. Encouraged to discuss further with family and consult spindle frame carver or complete [place] approved form, which I would be glad to assist them with completion. All questions answered. polst form filled out and signed Arthritis 04/07/2018 Assessment & Plan (11/03/2020 1:49 PM DESIGN ENGINEER PRODUCTS): Patient is well controlled. Continue current treatment. [...] PRN. Assessment & Plan (11/14/2021 12:13 PM DESIGN ENGINEER PRODUCTS): Refill albuterol Assessment & Plan (11/03/2020 1:45 PM DESIGN ENGINEER PRODUCTS): stable Assessment & Plan (05/05/2020 1:47 PM CDT): Albuterol prn Refill epipen Cont singulair Assessment & Plan (11/04/2019 1:29 PM DESIGN ENGINEER PRODUCTS): Stable No new orders Assessment & Plan [...] t4 Assessment & Plan (11/14/2021 12:13 PM DESIGN ENGINEER PRODUCTS): tsh and free t4 6 months Assessment & Plan (05/12/2021 11:30 AM CDT): Check a tsh and free t4 Assessment & Plan (11/03/2020 1:45 PM DESIGN ENGINEER PRODUCTS): Lab in 6 months Assessment & Plan (05/05/2020 1:47 PM CDT): lab Assessment & Plan (11/04/2019 1:28 PM DESIGN ENGINEER PRODUCTS): Check lab in 6 months Assessment & Plan (05/06/2019 1:39 PM CDT): Patient is well controlled. Continue current treatment. Seasonal allergies 04/07/2018 Assessment & Plan (11/14/2021 12:14 PM DESIGN ENGINEER PRODUCTS): Refill singulair Assessment & Plan (11/03/2020 1:45 PM DESIGN ENGINEER PRODUCTS): Patient is well controlled. Continue current treatment. Assessment & Plan (11/04/2019 1:29 PM DESIGN ENGINEER PRODUCTS): Patient is well controlled. Continue current treatment. [...] 04/24/2023 Assessment & Plan (11/13/2022 10:09 AM DESIGN ENGINEER PRODUCTS): Medrol dose pack, take as directed on package Use albuterol inhaler for wheezing as needed every 4 hours Go to ER if worsening shortness of breath/trouble breathing Upper respiratory tract infection 11/13/2022 02/06/2023 Assessment & Plan (11/13/2022 10:10 AM DESIGN ENGINEER PRODUCTS): Rapid covid and flu negative PCR pending [...] 05/22/2022 Assessment & Plan (11/14/2021 12:20 PM DESIGN ENGINEER PRODUCTS): Order a us abdomen Encounters Date Type Department Care Team Description 12/21/2024 Nurse Triage [facility] Family Medicine at [address] [place] [address] Pierre Otto MD 12/04/2024 1:15 PM DESIGN ENGINEER PRODUCTS - 12/04/2024 11:59 PM DESIGN ENGINEER PRODUCTS Hospital Encounter [facility] Breast Imaging [address] [place] [phone] Breast cancer screening by mammogram Discharge Disposition: Discharge to home or self care 11/02/2024 12:53 PM DESIGN ENGINEER PRODUCTS - 11/02/2024 11:59 PM DESIGN ENGINEER PRODUCTS Hospital Encounter [facility] Ultrasound [address] [place] [address] Fatty liver Discharge Disposition: Discharge to home or self care 10/26/2024 12:45 PM DESIGN ENGINEER PRODUCTS Office Visit [facility] Family Medicine at [address] [place] [phone] Pierre Otto MD Medicare annual wellness visit, subsequent (Primary Dx); Breast cancer screening by mammogram; Class 3 severe obesity due to excess calories without serious comorbidity with body mass index (BMI) of 40.0 to 44.9 in adult (HCC) 09/28/2024 Telephone [facility] Family Medicine at [address] [address] Pierre Otto MD Symptom Based Call from Last 3 Months Immunizations Name Administration Dates Next Due Flucelvax [...] 05/22/2022 Pneumococcal Polysaccharide PPV23 11/03/2020 Tdap 12/02/2015 Surgical History Surgery Date Site/Laterality Comments TONSILECTOMY, ADENOIDECTOMY, BILATERAL MYRINGOTOMY AND TUBES 11/18/1959 - 11/17/1960 CYST REMOVAL 11/18/1993 - 11/17/1994 pilonidal cyst KNEE ARTHROSCOPY 11/18/2008 - 11/17/2009 Right COLONOSCOPY 11/2021 ESOPHAGOGASTRODUODENOSCOPY 11/18/2021 - 11/17/2022 DILATION AND CURETTAGE OF UTERUS - 11/17/1998 CHOLECYSTECTOMY July 09 Medical History Medical History Date Comments Hypothyroidism Asthma Arthritis Allergic rhinitis Pneumonia h/o 1992 GERD (gastroesophageal reflux disease) Irritable bowel syndrome Food intolerance corn and corn p roducts - GI Upset (noted on allergy test cevallos) Mold exposure 1995 patient states m old exposure to lungs work enviroment tx no hospitization Post-menopause 2007 Vaginal delivery x 2 Cholecystitis Family History Medical History Relation Name Comments Alzheimer's disease Father Elton Diabetes Father Elton Heart disease Father Elton Clotting disorder Mother Deanna Heart disease Mother Deanna Hypertension Mother Deanna Breast cancer Neg Hx Relation Name Status Comments Father Elton Mother Deanna Social History Tobacco Use Types Packs/Day Years [...] on file Legal Sex Female 9:13 PM DESIGN ENGINEER PRODUCTS Gender Identity Female 05/02/2023 4:53 PM CDT Sexual Orientation Not on file Obstetrics History Para Term AB IAB SAB Ectopic Multiple Livin g Live Births 3 2 2 Date Outcome GA Total Labor Labor/2nd/3rd Weight Sex Type Anes PTL Dominique A1 A5 Name Clin Term Term Last Filed Vital Signs Vital Sign Reading Time Taken Comments Blood Pressure 132/86 10/26/2024 12:35 PM DESIGN ENGINEER PRODUCTS Pulse 73 10/26/2024 12:35 PM DESIGN ENGINEER PRODUCTS Temperature 36.7 ??C (98.1 ??F) 10/26/2024 1 2:35 PM DESIGN ENGINEER PRODUCTS Respiratory Rate 18 10/26/2024 12:3 5 PM DESIGN ENGINEER PRODUCTS Oxygen Saturation 97% 10/26/2024 12: 35 PM DESIGN ENGINEER PRODUCTS Inhaled Oxygen Concentration - - Weight 107.1 kg (236 lb 1.6 oz) 024 12:35 PM DESIGN ENGINEER PRODUCTS Height 162.6 cm (5' 4 ) 10/26/2024 12:3 5 PM DESIGN ENGINEER PRODUCTS Body Mass Index 40.53 10/26/2024 12:35 PM DESIGN ENGINEER PRODUCTS Plan of Treatment Health Maintenance Due Date Last Done Comments Hepatitis B Screening 1972 Zoster Vaccine (1 of 2) 2004 Covid-19 Vaccine ( season) 2024 01/30/2021, 01/09/2021 Osteoporosis Screening-Bone Density Scan 05/01/2025 05/01/2023 Influenza Vaccine (#1) 2025 , 08/25/2021, 08/25/2021, Additional history exists Postponed from 07/19/2024 (Patient declined, but will receive in the future) Depression Screening 10/26/2025 10/26/2024, 06/15/2024, 06/15/2024, Additional history exists Fall Risk Assessment 10/26/2025 10/26/2024, 06/15/2024, 07/17/2023, Additional history exists Well Visit 65+ 10/26/2025 10/26/2024, 06/20, 05/22/2022, Additional history exists DTaP/Tdap/Td Vaccine (2 - Td or Tdap) 12/02/2025 12/02/2015 Breast Cancer Screening-Mammogram 12/04/2025 12/04/2024, 08/06/2023, 02/02/2022, Additional history exists Colon Cancer Screening-Colonoscopy 12/08/2031 12/08/2021, 03/25/2014 Hepatitis C Screening Completed 11/30/2021, 018 Colon Cancer Screening-CT Colonography Discontinued 12/08/2021, 03/25/2014 Colon Cancer Screening-DNA Stool Discontinued 12/08/2021, 03/25/2014 Colon Cancer Screening-FIT Discontinued 12/08/2021, Colon Cancer Screening-Sigmoidoscopy Discontinued 12/08/2021, 03/25/2014 Pneumococcal vaccine 65+ Completed 05/22/2022, 10/18 Procedures Procedure Name Priority Date/Time Associated Diagnosis Comments SCREENING MAMMOGRAM BILATERAL W JANIS Schedule Routine, Read Routine (OP Routine) 12/04/2024 1:59 PM DESIGN ENGINEER PRODUCTS Breast cancer screening by mammogram US RUQ Schedule Routine, Read Routine (OP Routine) 11/02/2024 1:18 PM DESIGN ENGINEER PRODUCTS Fatty liver DEXA AXIAL SKELETON BONE DENSITY 1 OR MORE SITES Schedule Routine, Read Routine (OP Routine) 05/01/2023 10:51 AM CDT Menopausal and postmenopausal disorder Asymptomatic menopausal state COLONOSCOPY Routine 12/08/2021 HEPATITIS C ANTIBODY Routine 11/30/2021 10:32 AM DESIGN ENGINEER PRODUCTS from Last 3 Months or Most Recently Relevant to Health Maintenance Results * SCREENING MAMMOGRAM BILATERAL W JANIS (12/04/2024 1:59 PM DESIGN ENGINEER PRODUCTS) Anatomical Region Laterality Modality Breast Bilateral Mammography Impressions 12/04/2024 2:02 PM DESIGN ENGINEER PRODUCTS BI-RADS?? ATLAS category (overall): 1 - Negative There is no mammographic evidence of malignancy. A 1 year screening mammogram is recommended. The patient has been or will be contacted. We recommend annual screening mammography for women at average risk of breast cancer beginning at age 40, based on guidelines of the [employer] (ACR Practice Parameter for the Performance of Screening and Diagnostic Mammography) and [employer]. For women with and elevated risk of breast cancer, please refer to the ACR Practice Parameter for specific screening recommendations. The patient will be entered into a reminder system with a target due date of 1 year for her next screening exam. Narrative 12/04/2024 2:02 PM DESIGN ENGINEER PRODUCTS SCREENING MAMMOGRAM BILATERAL W JANIS: 12/04/24 The [...] no suspicious change. us Pierre Otto MD IMG MAMMO PROCEDURES Final Resul t * US RUQ (11/02/2024 1:18 PM DESIGN ENGINEER PRODUCTS) Anatomical Region Laterality Modality Abdomen N/A Ultrasound 11/06/2024 12:3 2 PM DESIGN ENGINEER PRODUCTS Narrative 11/06/2024 12:33 PM DESIGN ENGINEER PRODUCTS EXAM DESCRIPTION: ?? US RUQ REASON FOR [...] PM T: ??11/06/2024 12:33 PM Report ID: [id number] Reading Location: ??[id number] Procedure Note Nabil Alvarez MD - 11/06/2024 [...] Nabil Alvarez M.D. KT: PARMINDER Report ID: [id number] Reading Location: [id number] us Gina Hill MD IMG US PROCEDURES [...] ??F ??with given history of screening. ?? Six Horse Hitch Driver/Model: Sparkbuy A (S/N [id number]) CLINICAL INFORMATION: Current height: ??62.5 ??inches ? [...] PM T: ??05/01/2023 12:33 PM Report ID: [id number] Reading Location: ??[id number] Procedure Note Fabiana Vigil MD - 05/01/2023 EXAM DESCRIPTION: DEXA AXIAL SKELETON BONE DENSITY 1 OR MORE SITES REASON FOR STUDY: 67 y/o year old F with given history of screening. Six Horse Hitch Driver/Model: Sparkbuy A (S/N [id number]) CLINICAL INFORMATION: Current height: 62.5 inches Maximum [...] Electronically signed by Fabiana Vigil M.D. TW: TW Report ID: [id number] Reading Location: [id number] Rich Mohr DO IMG DXA PROCEDURES Final Result * Colonoscopy (12/08/2021) Anatomical Region Laterality Modality Other Rich Mohr DO ENDOSCOPY PROCEDURES Fin al Result * Hepatitis C antibody (11/30/2021 10:32 AM DESIGN ENGINEER PRODUCTS) Hep C Ab Nonreactive Nonreactive RONN STRAUSS Comment: Interpretive Data Nonreactive: Antibodies to HCV [...] on 2020. Blood 11/30/2021 10:3 2 AM DESIGN ENGINEER PRODUCTS 11/30/2021 10:36 AM DESIGN ENGINEER PRODUCTS Gina Hill MD LAB MICROBIOLOGY - GENERA L ORDERABLES Final Result RONN [address] [facility] Department [place] [address] from Last 3 Months or Most Recently Relevant to Health Maintenance Insurance [facility]ICARE [facility] MEDICARE [facility] MEDICARE [facility] Advance Directives For more information, please contact: [phone] Documents on File Type Date Recorded Patient Ada Accommodation Consultant Expl anation ADVANCE DIRECTIVE 05/17/2021 9:19 PM Care Teams Client Manager Relationship Specialty Start Date End Date Pierre Otto MD [address] [facility] [address] [place] [address] [place] [id number] PCP - General Family Medicine 02/19/24
--- OUTSIDE RECORDS SUMMARY | 2024-12-21 17:31 | XMS_ITS | Continuity of Care Document ---
Author Organization [facility] Address [address] [place] [address] Phone Care Team Providers Care Cad Developer Name Role Phone Charlie Hanna MD Unavailable Unavailable Advance Directives Directive Yes / No Effective Date File Name No Information Encounters Encounter Description Practice Location Reason(s) For Visit Diagnoses Date Provider Providers Copied on Encounter [facility], [address] [place] [address], [id number], tel:[phone] [facility] No Information Mar-0 5-200 3 Jacques Guerra. [address] [place] [address], [id number] , . tel:[phone] Family History Family Member Type Diagnosis Age At Onset No Information Payers Payer name Insurance type Covered republican ID Authoriza tion(s) No Information Social History Type Description Quantity Date Captured Comments Sex Female Smoking Status No Information Chief Complaint And Reason For Visit No Information Reason For Referral Reason For Referral No Information History Of Present Illness Encounter Date Complaint History Of Prese nt Illness No Information Functional Status Date Functional Assessmen t No Information Instructions Date Instruction Additional Infor mation No Information Assessments Type Assessment Date No Information Patient Care Teams Name Effective Dates (start - stop) Status Members No Information
--- OUTSIDE RECORDS SUMMARY | 2024-12-21 17:31 | XMS_ITS | Continuity of Care Document ---
Author Organization [facility], [facility] Address [address] [place] [address] Phone Care Team Providers Care Dough Catcher Name Role Phone Chaitanya OD, Maxwell Unavailable [...] Diagnoses Date Provider Providers Copied on Encounter [facility], [facility], [address] [place], [place], [id number] , tel:[phone] [facility] decreased vision (chief complaint) decreased vision (chief complaint) Age-related nuclear cataract, bilateralPresbyopia 6 Chaitanya Arreola. [address] [facility], [place], [place], [id number] , [place]. tel: [phone] Family History Family Member Type Diagnosis Age [...] thritis Payers Payer name Insurance type Covered green party ID Authortrent yang(s) [facility] [id number] Social History Type Description Quantity Date Captured [...] glare OU. Pt uses Visine PRN OU. decreased vision (chief complaint) Reason For Referral Reason For Referral No [...]
--- OUTSIDE RECORDS SUMMARY | 2024-12-21 17:31 | XMS_ITS | Encounter Summary ---
Author Organization [facility] Healthcare Address [address] [place] [address] Care Team Providers Care Ore Miner Blasting Name Role Phone Pierre Otto MD Primary Care Provider Reason for Visit * Reason Onset Date Comments sinus congestion 12/21/2024 Encounter Details Date Type Department Care Team (Late st Contact Info) Description 12/21/2024 Nurse Triage [facility] Family Medicine at [address] [place] [address] Pierre Otto MD [address] [place] [address] [address] [place] [address] Social History Tobacco Use Types Packs/Day Years Used Date Smoking Tobacco: Never Cigarettes Smokeless Tobacco: Never Alcohol Use Standard Drinks/Week Comments Never 0 [...] on file Legal Sex Female 9:13 PM FREIGHT BROKER AGENT Gender Identity Female 05/02/2023 4:53 PM CDT Sexual Orientation Not on file documented as of this encounter Miscellaneous Notes * Telephone Encounter - Elisabeth Morillo RN - 12/21/2024 2:42 PM FREIGHT BROKER AGENT Onset: x 5 day (s). Pain . Symptoms: patient c/o: sinus congestion and pain, PND-bloody, headache, bilateral face pain and swelling under eyes, pain down back of neck, intermittent dizziness, lightheadedness, productive cough- light green, wheezing, temp 100, SOB since September, usually albuterol, hoarseness. Denies: earache, Relevant Meds: Xyzal, Singulair. Relevant HX of: BROOKE 10/26/24. Seasonal allergies, asthma Home Care Instructions/Education given: Patient verbalizes understanding of the instructions, is comfortable with the plan and will comply with the plan. Disposition per guideline:GO TO OFFICE OR VIDEO VISIT NOW: No appt available in office this week. Patient will make a VCC appt through my chart now. Pharmacy and allergies were verified. Reason for Disposition Redness or swelling on the cheek, forehead, or around the eye Protocols used: Sinus Pain or Udskepyawd-Oyejl-XM GHT BROKER AGENT * Telephone Encounter - Elisabeth Morillo RN - 12/21/2024 2:42 PM FREIGHT BROKER AGENT Regarding: Lightheaded and dizziness ----- Message from Elisabeth Landrum sent at 12/21/2024 2:37 PM FREIGHT BROKER AGENT ----- Symptom Based Call Chief Complaint(s): Lightheaded and dizziness Duration: 5 days What type of symptom(s) is the patient experiencing? Red Flag. Is the patient concerned they are experiencing a medical emergency requiring an ambulance? No Additional Comments: Patient states that she has sinus congestion, cough and running a temp around the 100's. Does message need to be routed? Yes-Action Needed GHT BROKER AGENT documented in this encounter Plan of Treatment Not on file documented as of this encounter Visit Diagnoses Not on filedocumented in this encounter Care Teams Ore Miner Blasting Relationship Specialty Start Date End Date Pierre Otto MD [address] [facility] [address] [place] [address] [place] [address] PCP - General Family Medicine 02/19/24 documented as of this encounter
--- OUTSIDE RECORDS SUMMARY | 2024-12-21 17:33 | XMS_ITS | Continuity of Care Document ---
Author Organization [facility], [facility] Address [address] [place] [address] Phone Care Team Providers Care Flow Coordinator Name Role Phone Chaitanya OD, Maxwell Unavailable [...] Diagnoses Date Provider Providers Copied on Encounter [facility], [facility], [address] [place], [place], [id number] , tel:[phone] [facility] decreased vision (chief complaint) decreased vision (chief complaint) Age-related nuclear cataract, bilateralPresbyopia 6 Chaitanya Arreola. [address] [facility], [place], [place], [id number] , [place]. tel: [phone] Family History Family Member Type Diagnosis Age [...] name Insurance type Covered alliance party ID Authortrent yang(s) [facility] [id number] Social History Type Description Quantity Date Captured [...]
--- OUTSIDE RECORDS SUMMARY | 2024-12-21 17:33 | XMS_ITS | Continuity of Care Document ---
Author Organization [facility] Address [address] [place] [address] Phone Care Team Providers Care Repair Electric Motor Assembler Name Role Phone Charlie Hanna MD Unavailable Unavailable Advance Directives Directive Yes / No Effective Date File Name No Information Encounters Encounter Description Practice Location Reason(s) For Visit Diagnoses Date Provider Providers Copied on Encounter [facility], [address] [place] [address], [id number], tel:[phone] [facility] No Information Mar-0 5-200 3 Jacques Guerra. [address] [place] [address], [id number] , . tel:[phone] Family History Family Member Type Diagnosis Age [...]
[2024-12-21 17:39] VITALS: BP 170/85; PULSE 73; RESP 16; TEMP 36.4; O2SAT 98
--- NOTE | 2024-12-21 18:35 | ED_ITS ---
HPI - General Adult General Chief complaint: Upper Respiratory Infection Stated complaint: sinus History of Present Illness HPI narrative: Edith Paiz is a 68-year-old female who presents today with complaints of having URI symptoms for a couple weeks and now with sinus pressure increased sinus drainage green thick mucus from nose coughing up green mucus now for 10 days she has concern for acute sinusitis Related Data Home Medications ?Medication ?Instructions ?Recorded ?Confirmed ?Last Taken ?Type albuterol sulfate 0.63 mg/3 mL 0.63 mg inhalation Q4H 07/07/22 08/03/24 Unknown History solution for nebulization azelastine 137 mcg (0.1 %) nasal 2 mcg intranasal DAILY 07/07/22 08/03/24 Unknown History spray cholecalciferol (vitamin D3) 50 50 mcg PO DAILY 07/07/22 08/03/24 Unknown History mcg (2,000 unit) tablet glucosamine sulfate 500 mg tablet 500 mg PO DAILY 07/07/22 08/03/24 Unknown History (Glucosamine) levothyroxine 25 mcg tablet 25 mcg PO DAILY 07/07/22 08/03/24 Unknown History mometasone-formoterol HFA 100 2 inh inhalation DAILY 07/07/22 08/03/24 Unknown History mcg-5 mcg/actuation aerosol inhaler (Dulera) montelukast 10 mg tablet 10 mg PO HS 08/03/24 08/03/24 Unknown History Allergies Allergy/AdvReac Type Severity Reaction Status Date / Time erythromycin base (From AdvReac Intermediate Vomiting Verified 12/21/24 18:14 E-Mycin) Penicillins AdvReac Intermediate Dyspnea / Verified 12/21/24 18:14 SOB azithromycin AdvReac Mild Hives Verified 12/21/24 18:14 cefdinir (From Omnicef) AdvReac Mild Hives Verified 12/21/24 18:14 cephalexin (From Keflex) AdvReac Mild Hives Verified 12/21/24 18:14 codeine AdvReac Mild Hives Verified 12/21/24 18:14 Review of Systems Review of Systems: All systems reviewed & are unremarkable except as noted in HPI and below PMFSH Past Medical History Medical History Hypothyroid Asthma Social History Social History Gender identity (if verbalized by the patient): Female Exam Narrative: GENERAL: Well-appearing, well-nourished, and in no acute distress. HEAD: Normocephalic, atraumatic. EYES: PERRLA and EOMI. ENT: Nares clear, no rhinorrhea or epistaxis. Mucous membranes moist. + maxillary pain with palpation Oropharynx without tonsillar hypertrophy exudate or other lesions. Bilateral TMs pearly lozoya non bulging NECK: Supple. No adenopathy or masses. No carotid bruits or JVD CHEST: Clear to auscultation. No respiratory distress. No wheezes rales or rhonchi HEART: Regular rate and rhythm. No murmur heard. Normal peripheral pulses. ABDOMEN: Soft, nontender, nondistended, normal active bowel sounds. EXTREMITIES: Normal range of motion. No edema. SKIN: Warm, dry, no rash. NEURO: No focal deficits. Alert and oriented x3. PSYCH: Normal mood and affect. Course Course Level of Care: Express Care Visit Vital Signs Vital signs: Vital Signs Temperature 36.4 C L 12/21/24 17:39 Pulse Rate 73 12/21/24 17:39 Respiratory Rate 16 12/21/24 17:39 Blood Pressure 170/85 H 12/21/24 17:39 Pulse Oximetry 98 12/21/24 17:39 Oxygen Delivery Room Air 12/21/24 17:39 Temperature 36.4 C L 12/21/24 17:39 Pulse Rate 73 12/21/24 17:39 Respiratory Rate 16 12/21/24 17:39 Blood Pressure 170/85 H 12/21/24 17:39 Pulse Oximetry 98 12/21/24 17:39 Oxygen Delivery Room Air 12/21/24 17:39 Medical Decision Making [facility] Narrative Medical decision making narrative: This 68 year old patient presents with symptoms most suggestive of acute sinusitis.. Lungs are clear bilaterally without any respiratory distress or accessory muscle use. Will start treatment with Doxycycline BID Close PCP follow up Return precautions discussed covid/flu - NEGATIVE Patient discharged home in stable condition with expectant management. Return precautions were provided. Procedures: Pulse oximetry interpretation - not hypoxic. Review of medical records. DISPOSITION: Discharged home in stable condition. IMPRESSION: Acute sinusitis Medical Records Medical records reviewed: Yes I reviewed the external patient's medical records. Vital Signs Vital Signs: Vital Signs Temperature 36.4 C L 12/21/24 17:39 Pulse Rate 73 12/21/24 17:39 Respiratory Rate 16 12/21/24 17:39 Blood Pressure 170/85 H 12/21/24 17:39 Pulse Oximetry 98 12/21/24 17:39 Oxygen Delivery Room Air 12/21/24 17:39 Temperature 36.4 C L 12/21/24 17:39 Pulse Rate 73 12/21/24 17:39 Respiratory Rate 16 12/21/24 17:39 Blood Pressure 170/85 H 12/21/24 17:39 Pulse Oximetry 98 12/21/24 17:39 Oxygen Delivery Room Air 12/21/24 17:39 vitals reviewed by me Lab Data Lab results reviewed: Yes I reviewed the patient's lab results. Discharge Plan Discharge Clinical Impression: Acute bacterial sinusitis Patient Disposition: Home, Self-Care Condition: Stable Instructions: Antibiotic Form Additional Instructions: Start taking the doxycycline twice a day for 1 week. Start taking the Mucinex twice a day for 10 days. Continue to use sinus rinses as we discussed you may also take Tylenol Motrin as needed for pain body aches. Please follow-up with your primary care doctor in the next 5-7 days to ensure your symptoms are improving. If he develops any worsening symptoms such as chest pain, shortness of breath, difficulty breathing, vomiting proceed to the ER. Patient Language: Sinhala Prescriptions: New doxycycline hyclate 100 mg capsule 100 mg PO BID Qty: 14 0RF guaifenesin [Mucinex] 1,200 mg tablet extended release 12hr 1,200 mg PO BID Qty: 20 0RF No Action montelukast 10 mg tablet 10 mg PO HS albuterol sulfate 2.5 mg /3 mL (0.083 %) solution for nebulization 2.5 mg inhalation Q6H PRN (Reason: shortness of breath or wheezing) Qty: 90 0RF albuterol sulfate 0.63 mg/3 mL Solution For Nebulization 0.63 mg INHALATION Q4H glucosamine sulfate [Glucosamine] 500 mg Tablet 500 mg PO DAILY Rx Instructions: administer with a meal levothyroxine 25 mcg tablet 25 mcg PO DAILY azelastine 137 mcg (0.1 %) aerosol,spray 2 mcg INTRANASAL DAILY cholecalciferol (vitamin D3) 50 mcg (2,000 unit) Tablet 50 mcg PO DAILY Dulera 100-5 mcg/actuation HFA aerosol inhaler 2 inh INHALATION DAILY Follow-up/Referrals: Fam,MD Pierre [Primary Care Provider] - Time of Disposition: 18:40
[2024-12-21 18:38] LABS: EDCOVIDSCREEN Negative (Negative); EDINFLUASCREEN Negative (Negative); EDINFLUBSCREEN Negative (Negative)
== END 2024-12-21 18:43 | disposition home or self-care (01) ==
PROVIDERS: Emergency Provider Nurse Practitioner Family; PCP Family Medicine
DX: J01.90 Acute sinusitis, unspecified (principal); Z20.822 Contact with and (suspected) exposure to COVID-19; E03.9 Hypothyroidism, unspecified; J45.909 Unspecified asthma, uncomplicated
CPT/HCPCS: 87426; 87804; 99213; G0463

== ENCOUNTER 2025-03-04 13:42 | Emergency (ER) | payer MEDICARE, OTHER, SELFPAY ==
--- NOTE | ~2025-03-04 | XR_ITS ---
EXAMINATION: XR chest 2V DATE: 03/04/2025 14:13 INDICATION: Cough and wheezing TECHNIQUE: frontal and lateral views of the chest were obtained. COMPARISON: None FINDINGS: Indeterminate nodular opacity at the right lung base. Mild airspace opacities in the left lower lung zone and the right mid lung zones cephalad to the minor fissure. Oblique thin linear discoid atelecta sis in the right midlung zone. No pleural effusion or pneumothorax. Cardiomegaly. Mild to moderate th oracic and upper lumbar spondylosis. IMPRESSION: 1. Opacities in the left lower right mid lung zones which could represent atelectasis or pneumonia. 2. Indeterminate nodular opacity right lung base which appears relatively conspicuous suggesting this may be calcified but would recommend chest CT for more definitive determination. Reviewed, dictated and finalized at location A. IMPRESSION: 1. Opacities in the left lower right mid lung zones which could represent atele ctasis or pneumonia. 2. Indeterminate nodular opacity right lung base which appears relatively consp icuous suggesting this may be calcified but would recommend chest CT for more d efinitive determination.
--- NOTE | 2025-03-04 13:48 | ED_ITS ---
HPI - URI/Sore Throat General Chief Complaint: Upper Respiratory Infection Stated Complaint: URI Time Seen by Provider: 03/04/25 13:48 Source: patient and RN notes reviewed Mode of arrival: ambulatory Limitations: no limitations History of Present Illness HPI Narrative: 69-year-old female presents Express Care complaining of upper respiratory symptoms for 6 days. Patient knows she was increasingly more fatigued and then started to develop sinus pressure, sore throat, productive cough, voice hoarseness, and body aches. She reports feeling wheezy however it is controlled with her prescribed inhaler. She denies any chest pain shortness of breath. She denies any fevers, chills, nausea, vomiting, diarrhea. Patient states that she is coughing up yellow sputum. 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 She is a nonsmoker Related Data Home Medications ?Medication ?Instructions ?Recorded ?Confirmed ?Last Taken ?Type albuterol sulfate 0.63 mg/3 mL 0.63 mg inhalation Q4H 07/07/22 08/03/24 Unknown History solution for nebulization azelastine 137 mcg (0.1 %) nasal 2 mcg intranasal DAILY 07/07/22 08/03/24 Unknown History spray cholecalciferol (vitamin D3) 50 50 mcg PO DAILY 07/07/22 08/03/24 Unknown History mcg (2,000 unit) tablet glucosamine sulfate 500 mg tablet 500 mg PO DAILY 07/07/22 08/03/24 Unknown History (Glucosamine) levothyroxine 25 mcg tablet 25 mcg PO DAILY 07/07/22 08/03/24 Unknown History mometasone-formoterol HFA 100 2 inh inhalation DAILY 07/07/22 08/03/24 Unknown History mcg-5 mcg/actuation aerosol inhaler (Dulera) montelukast 10 mg tablet 10 mg PO HS 08/03/24 08/03/24 Unknown History Allergies Allergy/AdvReac Type Severity Reaction Status Date / Time azithromycin Allergy Mild Hives Verified 03/04/25 13:52 cefdinir (From Omnicef) Allergy Mild Hives Verified 03/04/25 13:52 cephalexin (From Keflex) Allergy Mild Hives Verified 03/04/25 13:52 codeine Allergy Mild Hives Verified 03/04/25 13:52 erythromycin base (From AdvReac Intermediate Vomiting Verified 03/04/25 13:52 E-Mycin) Penicillins AdvReac Intermediate Dyspnea / Verified 03/04/25 13:52 SOB Review of Systems 2 Review of Systems: CONSTITUTIONAL: Denies fever, chills, or sweats. Positive for fatigue and body aches EYES: Denies visual changes, redness, or discharge. ENT: Denies rhinorrhea, or otalgia. Positive for congestion, sore throat, voice hoarseness, sinus pressure. CARDIOVASCULAR: Denies chest pain, palpitations, or edema. RESPIRATORY: Positive for productive cough and wheezing, negative for dyspnea. GASTROINTESTINAL: Denies abdominal pain, nausea, vomiting, or diarrhea. GENITOURINARY: Denies dysuria or hematuria. SKIN: Denies rash or itching. MUSCULOSKELETAL: Denies back pain, joint pain, or myalgia. NEUROLOGIC: Denies headache, numbness, or weakness. PSYCHIATRIC: Denies anxiety or depression. All other systems reviewed are negative, except as documented in HPI. [facility] Past Medical History Medical History Hypothyroid Asthma Social History Social History Gender identity (if verbalized by the patient): Female Comments At the time of my signature, I reviewed and agree with the nursing past medical, surgical, social, and family history. There is no relevant family history pertinent to the patient complaint. Exam Narrative: GENERAL: This is a well-nourished, well-developed adult, in no apparent distress. They are non ill-appearing, nontoxic appearing. HEAD: normocephalic, atraumatic. EYES: Sclera clear/white. Vision is grossly intact. Extraocular movements intact EARS: External ears normal, auditory canals clear and without drainage, TMs normal without perforation. Hearing grossly intact. NOSE: External nose normal with thick nasal discharge, nasal turbinates are edematous bilaterally, no rhinorrhea. Maxillary sinus tenderness to palpation. THROAT: Mucous membranes moist, posterior pharynx erythemic without swelling. Uvula midline, postnasal drip present. NECK: Neck supple, mild tenderness with mild cervical lymphadenopathy, no masses or thyromegaly. CARDIOVASCULAR: Regular rate and rhythm without murmurs, gallops, or rubs. RESPIRATORY: Expiratory wheezing to the right upper lobe, otherwise lung sounds are clear throughout. Breath sounds equal bilaterally. Normal respiratory rate, respiratory effort is nonlabored, no respiratory distress, no retractions SKIN: warm, Dry, intact with no suspicious lesions or rash, good texture and turgor. NEURO: awake, alert, and oriented to person, place and time. There were no obvious focal neurologic abnormalities. EXTREMITIES: No joint tenderness, effusion, or edema noted. Course Course Emergency Course: Patient is aware of diagnosis, understands and agrees to treatment plan. Anticipatory guidance given. Patient agrees to follow-up as directed and is aware of reasons to seek care at the emergency department. Portions of this record may have been created with voice recognition software Level of Care: Express Care Visit Vital Signs Vital signs: Vital Signs Temperature 97.8 F 03/04/25 13:51 Pulse Rate 68 03/04/25 13:51 Respiratory Rate 18 03/04/25 13:51 Blood Pressure 155/79 H 03/04/25 13:51 Pulse Oximetry 97 03/04/25 13:51 Oxygen Delivery Room Air 03/04/25 13:51 Temperature 97.8 F 03/04/25 13:51 Pulse Rate 68 03/04/25 13:51 Respiratory Rate 18 03/04/25 13:51 Blood Pressure 155/79 H 03/04/25 13:51 Pulse Oximetry 97 03/04/25 13:51 Oxygen Delivery Room Air 03/04/25 13:51 Reviewed MDM - URI/Sore Throat MDM Narrative Medical decision making narrative: COVID and flu swabs were negative. Chest x-ray did show evidence of pneumonia. Given the patient's symptoms will treat empirically with levofloxacin. The patient has multiple drug allergies to penicillins, macrolides, and cephalosporins, and she reports having history of asthma and scarring in her lungs. Discussed x-ray findings with patient and advised her to follow-up with her primary care provider about the nodular opacity noted on her chest x-ray. Discussed physical exam findings. Advised supportive measures and signs/symptoms to go to the ER. Pt is appropriate for outpt treatment and f/u. Differential Diagnosis Differential diagnosis: Likely other (Pneumonia, bronchitis, upper respiratory infection) Lab Data Attestation: I reviewed the patient's lab results. Labs: Lab Results 03/04/25 Range/Units 14:27 POC Influenza A Ag Negative (Negative) POC Influenza B Ag Negative (Negative) POC SARS CoV-2 Ag Negative (Negative) Imaging Data Radiologist's impression: ITS Impressions Chest X-Ray 03/04/25 14:15 IMPRESSION: 1. Opacities in the left lower right mid lung zones which could represent atelectasis or pneumonia. 2. Indeterminate nodular opacity right lung base which appears relatively conspicuous suggesting this may be calcified but would recommend chest CT for more definitive determination. Critical Care Time Critical Care Time Critical Care Time: No Discharge Plan Discharge Clinical Impression: Pneumonia Qualifiers: Pneumonia type: due to unspecified organism Laterality: unspecified laterality Lung location: unspecified part of lung Qualified Code(s): J18.9 - Pneumonia, unspecified organism Patient Disposition: Home Condition: Stable Instructions: Antibiotic Form, Community Acquired Pneumonia (ED) Additional Instructions: Take antibiotics as directed until complete. eat small frequent meals. Get lots of rest and drink fluids. Alternate Tylenol and ibuprofen for pain/fever [id number] cough medication can cause drowsiness, take according to package directions If you have nasal congestion, you can take Zyrtec, Claritin along with Flonase spray Continue to use your inhaler prescribed to you for any wheezing. Follow-up with your primary care doctor about your chest x-ray results. Call your Primary Care Doctor and make a follow-up appointment in 3 days. Go to the ER for difficulty breathing, worsening weakness, worsening symptoms or any other concerns Patient Language: Pashto Prescriptions: New levofloxacin 750 mg tablet 750 mg PO DAILY 5 Days Qty: 5 0RF No Action montelukast 10 mg tablet 10 mg PO HS albuterol sulfate 0.63 mg/3 mL Solution For Nebulization 0.63 mg INHALATION Q4H glucosamine sulfate [Glucosamine] 500 mg Tablet 500 mg PO DAILY Rx Instructions: administer with a meal levothyroxine 25 mcg tablet 25 mcg PO DAILY azelastine 137 mcg (0.1 %) aerosol,spray 2 mcg INTRANASAL DAILY cholecalciferol (vitamin D3) 50 mcg (2,000 unit) Tablet 50 mcg PO DAILY Dulera 100-5 mcg/actuation HFA aerosol inhaler 2 inh INHALATION DAILY Follow-up/Referrals: Fam,MD Pierre [Primary Care Provider] - Time of Disposition: 14:34
[2025-03-04 13:51] VITALS: BP 155/79; PULSE 68; RESP 18; TEMP 36.6; O2SAT 97
--- OUTSIDE RECORDS SUMMARY | 2025-03-04 13:58 | XMS_ITS | Continuity of Care Document ---
Author Organization [facility], [facility] Address [address] [place] [address] Phone Care Team Providers Care Discharge Coordinator Name Role Phone Chaitanya OD, Maxwell Unavailable Unavailable Allergies, Adverse Reactions, Alerts Substance Reaction Status Criticality azithromycin Active No Information codeine Active No Information neomycin Active No Information cefdinir Active No Information erythromycin base Active No Informa tion CEPHALEXIN MONOHYDRATE Active No In formation PENICILLIN Active No Information Medications Medication Instructions Dosage Effective Dates (start - stop) Status Comments Visine 0.05 % eye drops instill 1 drop PRN OU - Active DULERA (unknown strength) Not Available - Active LEVOTHYROXINE SODIUM (unknown strength) Not Available - Active XYZAL (unknown strength) Not Available - Active ASTELIN (unknown strength) Not Available - Active NASACORT AQ (unknown strength) Not Available - Active Procedures Procedure Date EYE EXAM, NEW PATIENT MEDICAL 6 REFRACTION UPDATE Vision svcs frames purchases Trifocal Lens Progressive lens per lens Lens Polycarb Deluxe lens feature A/R Standard Advance Directives Directive Yes / No Effective Date File Name No Information Encounters Encounter Description Practice Location Reason(s) For Visit Diagnoses Date Provider Providers Copied on Encounter [facility], [facility], [address], [place], [id number] , tel:+ [phone] [facility] decreased vision (chief complaint) decreased vision (chief complaint) Age-related nuclear cataract, bilateralPresbyopia 6 Chaitanya Arreola. [address] [facility], [place], [place], [id number] , [place]. tel: [phone] Family History Family Member Type Diagnosis Age At Onset Problem (finding) No family history of Ar thritis Brother Problem (finding) cataract Brother Problem (finding) Diabetes mellitus Problem (finding) No family history of St [place] Mother Problem (finding) hypertension Mother Problem (finding) Heart Disease Problem (finding) No family history of Re spiratory disease Mother Problem (finding) Problem (finding) No family history of Re tinal disease Problem (finding) No family history of Gl [place] Problem (finding) No family hist ory of Macular degeneration Payers Payer name Insurance type Covered libertarian ID Authortrent yang(s) [facility] [id number] Social History Type Description Quantity Date Captured [...]
--- OUTSIDE RECORDS SUMMARY | 2025-03-04 13:58 | XMS_ITS | Clinical Summary ---
Author Organization [facility] Office Center Address [address] [place] [address] Care Team Providers Care Metal Fabricating Shop Helper Name Role Phone Pierre Otto MD Primary Care Provider [phone] Allergies Active Allergy Reactions Criticality Noted Date Comments Azithromycin Rash Medium 05/04/2019 Rash Cefdinir Rash Medium 05/04/2019 Rash Cephalexin Shortness of breath High 05/04/2019 Rash, SOB Codeine Phosphate Vomiting Low 05/04/2019 GI Upset, Vomit Erythromycin Vomiting Low 05/04/2019 GI Upset, vomit Neomycin Sulfate Swelling Medium 05/04/2019 Swelling Other Other (See comments) Low 07/13/2022 Cats, cevallos pork Allergy testing We[employer] and corn products GI upset Penicillamine Shortness of breath High 05/04/2019 Rash, SOB Tramadol Nausea & Vomiting Low 07/17/2023 Medications triamcinolone (NASACORT) 55 mcg nasal inhaler Administer 1 spray into each nostril daily Active levocetirizine (XYZAL) 5 mg tablet Take 1 tablet (5 mg total) by mouth daily Active glucosamine-cho ndroitin 500-400 mg tablet Take 1 tablet by [...] (MAG-OX) 400 mg (241.3 mg elemental magnesium) tabletIndicatio ns:hypomagnesem ia Take 1 tablet (400 mg total) by mouth daily Active therapeutic multivitamin (THERA) tabletIndicatio ns:Vitamin Deficiency Prevention Take 1 tablet by mouth daily Active albuterol HFA (PROVENTIL HFA,VENTOLIN HFA,PROAIR HFA) 90 mcg/actuation inhalerIndicati ons:Moderate persistent asthma without complication Inhale 2 puffs every 6 (six) hours as needed for wheezing 8.5 g 11 02/19/20 24 Active montelukast (SINGULAIR) 10 mg tabletIndicatio ns:Seasonal allergies Take 1 tablet (10 mg total) by mouth daily 90 tablet 3 07/22/20 24 Active mometasone-form oterol (DULERA 200) 200-5 mcg/actuation inhalerIndicati ons:Moderate persistent asthma without complication Inhale 2 puffs 2 (two) times a day Rinse mouth with water after use. Do not swallow. 3 each 3 07/22/20 24 2024 Active levothyroxine (SYNTHROID) 25 mcg tabletIndicatio ns:Hypothyroidi sm, unspecified type Take 1 tablet (25 mcg total) by mouth daily 90 tablet 3 07/22/20 24 Active EPINEPHrine 0.3 mg/0.3 mL auto-injection syringeIndicati ons:Anaphylaxis Inject 0.3 mL (0.3 mg total) into the muscle as instructed as needed for anaphylaxis Call 911 after use. 1 each 5 10/26/20 24 2024 Active albuterol 0.63 mg/3 mL nebulizer solution Take 3 mL (0.63 mg total) by nebulization every 6 (six) hours as needed for wheezing (pt unsure of dose & frequency) 75 mL 1 10/26/20 24 Active azelastine (ASTELIN) 137 mcg (0.1 %) nasal spray USE 1 SPRAY IN EACH NOSTRIL TWICE DAILY DIRECTED 30 mL 3 02/11/20 25 Active azelastine (ASTELIN) 137 mcg (0.1 %) nasal spray Administer 1 spray into each nostril 2 (two) times a day Use in each nostril as directed 30 mL 3 06/15/20 24 2024 Discontinued Active Problems Problem Noted Date Diagnosed Date [...] 05/22 Assessment & Plan (10/26/2024 12:48 PM SHOTGUN SHELL REPRINTING UNIT OPERATOR): Patient here for annual Medicare wellness visit [...] Free, Intramuscular 09/08/2015, 07/11/2020 Influenza, Unspecified 02/06/2023 Pfizer SARS-CoV-2 Monovalent Vaccination (12+ Yrs) PURPLE 01/09/2021, [...] 11/14/2021 Assessment & Plan (11/14/2021 12:22 PM SHOTGUN SHELL REPRINTING UNIT OPERATOR): X ray left hip Full code status 05/12/2021 Assessment & Plan (05/12/2021 11:29 AM CDT): Discussed with patient approximately 20minutes End of life issues/Advanced Directives/Healthcare Surrogate. Discussed DNR. Encouraged to discuss further with family and consult county attorney or complete [place] approved form, which I would be glad to assist them with completion. All questions answered. polst form filled out and signed Arthritis 04/07/2018 Assessment & Plan (11/03/2020 1:49 PM SHOTGUN SHELL REPRINTING UNIT OPERATOR): Patient is well controlled. Continue current treatment. [...] PRN. Assessment & Plan (11/14/2021 12:13 PM SHOTGUN SHELL REPRINTING UNIT OPERATOR): Refill albuterol Assessment & Plan (11/03/2020 1:45 PM SHOTGUN SHELL REPRINTING UNIT OPERATOR): stable Assessment & Plan (05/05/2020 1:47 PM CDT): Albuterol prn Refill epipen Cont singulair Assessment & Plan (11/04/2019 1:29 PM SHOTGUN SHELL REPRINTING UNIT OPERATOR): Stable No new orders Assessment & Plan [...] t4 Assessment & Plan (11/14/2021 12:13 PM SHOTGUN SHELL REPRINTING UNIT OPERATOR): tsh and free t4 6 months Assessment & Plan (05/12/2021 11:30 AM CDT): Check a tsh and free t4 Assessment & Plan (11/03/2020 1:45 PM SHOTGUN SHELL REPRINTING UNIT OPERATOR): Lab in 6 months Assessment & Plan (05/05/2020 1:47 PM CDT): lab Assessment & Plan (11/04/2019 1:28 PM SHOTGUN SHELL REPRINTING UNIT OPERATOR): Check lab in 6 months Assessment & Plan (05/06/2019 1:39 PM CDT): Patient is well controlled. Continue current treatment. Seasonal allergies 04/07/2018 Assessment & Plan (11/14/2021 12:14 PM SHOTGUN SHELL REPRINTING UNIT OPERATOR): Refill singulair Assessment & Plan (11/03/2020 1:45 PM SHOTGUN SHELL REPRINTING UNIT OPERATOR): Patient is well controlled. Continue current treatment. Assessment & Plan (11/04/2019 1:29 PM SHOTGUN SHELL REPRINTING UNIT OPERATOR): Patient is well controlled. Continue current treatment. [...] to plan. Moderate persistent asthma with exacerbation 2 04/24/2023 Assessment & Plan (11/13/2022 10:09 AM SHOTGUN SHELL REPRINTING UNIT OPERATOR): Medrol dose pack, take as directed on package Use albuterol inhaler for wheezing as needed every 4 hours Go to ER if worsening shortness of breath/trouble breathing Upper respiratory tract infection 11/13/2022 02/06/2023 Assessment & Plan (11/13/2022 10:10 AM SHOTGUN SHELL REPRINTING UNIT OPERATOR): Rapid covid and flu negative PCR pending [...] 05/22/2022 Assessment & Plan (11/14/2021 12:20 PM SHOTGUN SHELL REPRINTING UNIT OPERATOR): Order a us abdomen Encounters Date Type Department Care Team Description 12/21/2024 Nurse Triage [facility] Family Medicine at [address] [place] [address] Pierre Otto MD 12/04/2024 1:15 PM SHOTGUN SHELL REPRINTING UNIT OPERATOR - 12/04/2024 11:59 PM SHOTGUN SHELL REPRINTING UNIT OPERATOR Hospital Encounter [facility] [address] [place] [address] Breast cancer screening by mammogram Discharge Disposition: Discharge to home or self care from Last 3 Months Immunizations Immunization Administration Dates Next Due Flucelvax Influenza Quad [...] Hypothyroidism Asthma Arthritis Allergic rhinitis Pneumonia h/o 1971, 1992 GERD (gastroesophageal reflux disease) Irritable bowel [...] staff should administer the PHQ-9) 0 10/22/2024 PHQ-9 Answer Date Recorded PHQ-9 Total Score 0 06/15/2024 Comments No Sex and Gender Information Value Date Recorded Sex Assigned at Not on file Legal Sex Female 9:13 PM SHOTGUN SHELL REPRINTING UNIT OPERATOR Gender Identity Female 05/02/2023 4:53 PM CDT Sexual Orientation Not on file Obstetrics History Para Term AB IAB SAB Ectopic Multiple Livin g Live Births 3 2 2 Date Outcome GA Total Labor Labor/2nd/3rd Weight Sex Type Anes PTL Dominique A1 A5 Name Clin Term Term Last Filed Vital Signs Vital Sign Reading Time Taken Comments Blood Pressure 132/86 10/26/2024 12:35 PM SHOTGUN SHELL REPRINTING UNIT OPERATOR Pulse 73 10/26/2024 12:35 PM SHOTGUN SHELL REPRINTING UNIT OPERATOR Temperature 36.7 C (98.1 F) 10/26/2024 12:35 PM SHOTGUN SHELL REPRINTING UNIT OPERATOR Respiratory Rate 18 10/26/2024 12:3 5 PM SHOTGUN SHELL REPRINTING UNIT OPERATOR Oxygen Saturation 97% 10/26/2024 12: 35 PM SHOTGUN SHELL REPRINTING UNIT OPERATOR Inhaled Oxygen Concentration - - Weight 107.1 kg (236 lb 1.6 oz) 024 12:35 PM SHOTGUN SHELL REPRINTING UNIT OPERATOR Height 162.6 cm (5' 4 ) 10/26/2024 12:3 5 PM SHOTGUN SHELL REPRINTING UNIT OPERATOR Body Mass Index 40.53 10/26/2024 12:35 PM SHOTGUN SHELL REPRINTING UNIT OPERATOR Plan of Treatment Health Maintenance Due Date [...] Read Routine (OP Routine) 12/04/2024 1:59 PM SHOTGUN SHELL REPRINTING UNIT OPERATOR Breast cancer screening by mammogram DEXA AXIAL SKELETON BONE DENSITY 1 OR MORE SITES Schedule Routine, Read Routine (OP Routine) 05/01/2023 10:51 AM CDT Menopausal and postmenopausal disorder Asymptomatic menopausal state COLONOSCOPY Routine 12/08/2021 HEPATITIS C ANTIBODY Routine 11/30/2021 10:32 AM SHOTGUN SHELL REPRINTING UNIT OPERATOR from Last 3 Months or Most Recently Relevant to Health Maintenance Results * SCREENING MAMMOGRAM BILATERAL W JANIS (12/04/2024 1:59 PM SHOTGUN SHELL REPRINTING UNIT OPERATOR) Anatomical Region Laterality Modality Breast Bilateral Mammography Impressions 12/04/2024 2:02 PM SHOTGUN SHELL REPRINTING UNIT OPERATOR BI-RADS ATLAS category (overall): 1 - Negative There is no mammographic evidence of malignancy. A 1 year screening mammogram is recommended. The patient has been or will be contacted. We recommend annual screening mammography for women at average risk of breast cancer beginning at age 40, based on guidelines of the [place] (ACR Practice Parameter for the Performance of Screening and Diagnostic Mammography) and [place]. For women with and elevated risk of breast cancer, please refer to the ACR Practice Parameter for specific screening recommendations. The patient will be entered into a reminder system with a target due date of 1 year for her next screening exam. Narrative 12/04/2024 2:02 PM SHOTGUN SHELL REPRINTING UNIT OPERATOR SCREENING MAMMOGRAM BILATERAL W JANIS: 12/04/24 The study was acquired using full field digital technology and interpreted from soft copy. 2D digital mammographic views, as well as 3D digital tomosynthesis were performed in the CC and MLO projections. CLINICAL: Breast cancer screening by mammogram No relevant medical history has been documented for this patient. History of breast cancer in Neg Hx. COMPARISONS: [...] no suspicious change. us Pierre Otto MD [facility] MAMMO PROCEDURES Final Resul t * Dexa Axial Skeleton Bone Density 1 or 2 Site (05/01/2023 10:51 AM CDT) Anatomical Region Laterality Modality Body N/A Mammography 05/01/2023 12:3 3 PM CDT Narrative 05/01/2023 12:33 PM CDT EXAM DESCRIPTION: DEXA AXIAL SKELETON BONE DENSITY 1 OR MORE SITES REASON FOR STUDY: 67 y/o year old F with given history of screening. 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 FRAX is a World Health Organization validated fracture risk assessment tool that calculates a person's 10 year probability of a major osteoporosis related fracture and hip fracture. According to the National Osteoporosis Foundation guidelines, postmenopausal [...] Fabiana Vigil M.D. TW: TW Report ID: [id number] Reading Location: [id number] Procedure Note Faibana Vigil MD - 05/01/2023 EXAM DESCRIPTION: DEXA AXIAL SKELETON BONE DENSITY 1 OR MORE SITES REASON FOR STUDY: 67 y/o year old F with given history of screening. Mud Mixer/Model: [employer] A (S/N [id number]) CLINICAL INFORMATION: Current height: 62.5 inches Maximum [...] Fabiana Vigil M.D. TW: NANDO Report ID: [id number] Reading Location: [id number] Rich Mohr DO IMG DXA PROCEDURES Final Result * Colonoscopy (12/08/2021) Anatomical Region Laterality Modality Other us Rich Mohr DO ENDOSCOPY PROCEDURES Fin al Result * Hepatitis C antibody (11/30/2021 10:32 AM SHOTGUN SHELL REPRINTING UNIT OPERATOR) Hep C Ab Nonreactive Nonreactive RONN Comment: Interpretive Data Nonreactive: Antibodies to HCV not detected. Does NOT exclude the possibility of recent exposure to HCV. Equivocal: Equivocal for HCV antibodies. Supplemental molecular testing will be automatically performed to determine infection status in accordance with current CDC screening recommendations. Reactive: Positive for HCV antibodies. This may represent current or past HCV infection. Supplemental molecular testing will be automatically performed to determine current infection status in accordance with current CDC screening recommendations. Interpretive data was last revised on 2020. Blood 11/30/2021 10:3 2 AM SHOTGUN SHELL REPRINTING UNIT OPERATOR 11/30/2021 10:36 AM SHOTGUN SHELL REPRINTING UNIT OPERATOR Gina Hill MD LAB MICROBIOLOGY - GENERA L ORDERABLES Final Result RONN [id number] [facility] Department [place] [address] from Last 3 Months or Most Recently Relevant to Health Maintenance Insurance MEDICARE [facility] MEDICARE [facility] Advance Directives For more information, please contact: [phone] Documents on File Type Date Recorded Patient Disability Manager Expl anation ADVANCE DIRECTIVE 05/17/2021 9:19 PM Care Teams Metal Fabricating Shop Helper Relationship Specialty Start Date End Date Pierre Otto MD [address] [place] [address] [place] [id number] PCP - General Family Medicine 02/19/24
--- OUTSIDE RECORDS SUMMARY | 2025-03-04 13:58 | XMS_ITS | Referral Summary ---
Author Organization [facility] Address [address] [place] [address] Care Team Providers Care Program Manager Name Role Phone Pierre Otto MD Primary Care Provider [phone] Encounters Date Type Department Care Team Description 12/21/2024 Nurse Triage [facility] Family Medicine at [place] [address] [facility] [address] [place] [address] Pierre Otto MD 12/04/2024 1:15 PM CHIPS SCREEN TENDER - 12/04/2024 11:59 PM CHIPS SCREEN TENDER Hospital Encounter [facility] Breast Imaging [address] [place] [phone] Breast cancer screening by mammogram Discharge Disposition: Discharge to home or self care from Last 3 Months Allergies Active Allergy Reactions Criticality Noted Date Comments Azithromycin Rash Medium 05/04/2019 Rash Cefdinir Rash Medium 05/04/2019 Rash Cephalexin Shortness of breath High 05/04/2019 Rash, SOB Codeine Phosphate Vomiting Low 05/04/2019 GI Upset, Vomit Erythromycin Vomiting Low 05/04/2019 GI Upset, vomit Neomycin Sulfate Swelling Medium 05/04/2019 Swelling Other Other (See comments) Low 07/13/2022 Cats, cevallos pork Allergy testing [place] and corn products GI upset Penicillamine Shortness [...] 05/22 Assessment & Plan (10/26/2024 12:48 PM CHIPS SCREEN TENDER): Patient here for annual Medicare wellness visit [...] 11/14/2021 Assessment & Plan (11/14/2021 12:22 PM CHIPS SCREEN TENDER): X ray left hip Full code status 05/12/2021 Assessment & Plan (05/12/2021 11:29 AM CDT): Discussed with patient approximately 20minutes End of life issues/Advanced Directives/Healthcare Surrogate. Discussed DNR. Encouraged to discuss further with family and consult attorney lawyer or complete [place] approved form, which I would be glad to assist them with completion. All questions answered. polst form filled out and signed Arthritis 04/07/2018 Assessment & Plan (11/03/2020 1:49 PM CHIPS SCREEN TENDER): Patient is well controlled. Continue current treatment. [...] PRN. Assessment & Plan (11/14/2021 12:13 PM CHIPS SCREEN TENDER): Refill albuterol Assessment & Plan (11/03/2020 1:45 PM CHIPS SCREEN TENDER): stable Assessment & Plan (05/05/2020 1:47 PM CDT): Albuterol prn Refill epipen Cont singulair Assessment & Plan (11/04/2019 1:29 PM CHIPS SCREEN TENDER): Stable No new orders Assessment & Plan [...] t4 Assessment & Plan (11/14/2021 12:13 PM CHIPS SCREEN TENDER): tsh and free t4 6 months Assessment & Plan (05/12/2021 11:30 AM CDT): Check a tsh and free t4 Assessment & Plan (11/03/2020 1:45 PM CHIPS SCREEN TENDER): Lab in 6 months Assessment & Plan (05/05/2020 1:47 PM CDT): lab Assessment & Plan (11/04/2019 1:28 PM CHIPS SCREEN TENDER): Check lab in 6 months Assessment & Plan (05/06/2019 1:39 PM CDT): Patient is well controlled. Continue current treatment. Seasonal allergies 04/07/2018 Assessment & Plan (11/14/2021 12:14 PM CHIPS SCREEN TENDER): Refill singulair Assessment & Plan (11/03/2020 1:45 PM CHIPS SCREEN TENDER): Patient is well controlled. Continue current treatment. Assessment & Plan (11/04/2019 1:29 PM CHIPS SCREEN TENDER): Patient is well controlled. Continue current treatment. [...] 04/24/2023 Assessment & Plan (11/13/2022 10:09 AM CHIPS SCREEN TENDER): Medrol dose pack, take as directed on package Use albuterol inhaler for wheezing as needed every 4 hours Go to ER if worsening shortness of breath/trouble breathing Upper respiratory tract infection 11/13/2022 02/06/2023 Assessment & Plan (11/13/2022 10:10 AM CHIPS SCREEN TENDER): Rapid covid and flu negative PCR pending [...] 05/22/2022 Assessment & Plan (11/14/2021 12:20 PM CHIPS SCREEN TENDER): Order a us abdomen Immunizations Immunization Administration Dates Next Due Flucelvax [...] on file Legal Sex Female 9:13 PM CHIPS SCREEN TENDER Gender Identity Female 05/02/2023 4:53 PM CDT Sexual Orientation Not on file Last Filed Vital Signs Vital Sign Reading Time Taken Comments Blood Pressure 132/86 10/26/2024 12:35 PM CHIPS SCREEN TENDER Pulse 73 10/26/2024 12:35 PM CHIPS SCREEN TENDER Temperature 36.7 C (98.1 F) 10/26/2024 12:35 PM CHIPS SCREEN TENDER Respiratory Rate 18 10/26/2024 12:3 5 PM CHIPS SCREEN TENDER Oxygen Saturation 97% 10/26/2024 12: 35 PM CHIPS SCREEN TENDER Inhaled Oxygen Concentration - - Weight 107.1 kg (236 lb 1.6 oz) 024 12:35 PM CHIPS SCREEN TENDER Height 162.6 cm (5' 4 ) 10/26/2024 12:3 5 PM CHIPS SCREEN TENDER Body Mass Index 40.53 10/26/2024 12:35 PM CHIPS SCREEN TENDER Plan of Treatment Not on file Procedures Procedure Name Priority Date/Time Associated Diagnosis Comments SCREENING MAMMOGRAM BILATERAL W JANIS Schedule Routine, Read Routine (OP Routine) 12/04/2024 1:59 PM CHIPS SCREEN TENDER Breast cancer screening by mammogram DEXA AXIAL SKELETON BONE DENSITY 1 OR MORE SITES Schedule Routine, Read Routine (OP Routine) 05/01/2023 10:51 AM CDT Menopausal and postmenopausal disorder Asymptomatic menopausal state COLONOSCOPY Routine 12/08/2021 HEPATITIS C ANTIBODY Routine 11/30/2021 10:32 AM CHIPS SCREEN TENDER from Last 3 Months or Most Recently Relevant to Health Maintenance Results * SCREENING MAMMOGRAM BILATERAL W JANIS (12/04/2024 1:59 PM CHIPS SCREEN TENDER) Anatomical Region Laterality Modality Breast Bilateral Mammography Impressions 12/04/2024 2:02 PM CHIPS SCREEN TENDER BI-RADS ATLAS category (overall): 1 - Negative There is no mammographic evidence of malignancy. A 1 year screening mammogram is recommended. The patient has been or will be contacted. We recommend annual screening mammography for women at average risk of breast cancer beginning at age 40, based on guidelines of the [place] [employer] (ACR Practice Parameter for the Performance of Screening and Diagnostic Mammography) and [employer]. For women with and elevated risk of breast cancer, please refer to the ACR Practice Parameter for specific screening recommendations. The patient will be entered into a reminder system with a target due date of 1 year for her next screening exam. Narrative 12/04/2024 2:02 PM CHIPS SCREEN TENDER SCREENING MAMMOGRAM BILATERAL W JANIS: 12/04/24 The [...] no suspicious change. us Pierre Otto MD [facility] MAMMO PROCEDURES Final Resul t * Dexa Axial Skeleton Bone Density 1 or 2 Site (05/01/2023 10:51 AM CDT) Anatomical Region Laterality Modality Body N/A Mammography 05/01/2023 12:3 3 PM CDT Narrative 05/01/2023 12:33 PM CDT EXAM DESCRIPTION: DEXA AXIAL SKELETON BONE DENSITY 1 OR MORE SITES REASON FOR STUDY: 67 y/o year old F with given history of screening. 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 TW: NANDO Report ID: [id number] Reading Location: [id number] Procedure Note Fabiana Vigil MD - 05/01/2023 EXAM DESCRIPTION: DEXA AXIAL SKELETON BONE DENSITY 1 OR MORE SITES REASON FOR STUDY: 67 y/o year old F with given history of screening. 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 TW: NANDO Report ID: [id number] Reading Location: [id number] Rich Mohr DO IMG DXA PROCEDURES Final Result * Colonoscopy (12/08/2021) Anatomical Region Laterality Modality Other Rich Mohr DO ENDOSCOPY PROCEDURES Fin al Result * Hepatitis C antibody (11/30/2021 10:32 AM CHIPS SCREEN TENDER) Hep C Ab Nonreactive Nonreactive RONN STRAUSS [...] on 2020. Blood 11/30/2021 10:3 2 AM CHIPS SCREEN TENDER 11/30/2021 10:36 AM CHIPS SCREEN TENDER Gina Hill MD LAB MICROBIOLOGY - GENERA L ORDERABLES Final Result RONN [id number] [facility] Department [place] [address] from Last 3 Months or Most Recently Relevant to Health Maintenance Insurance MEDICARE [facility] MEDICARE [facility] Address: [address] [address] [place] [address] MEDICARE [facility]PPO Address: [facility] [address] [place] [address] Advance Directives For more information, please contact: [phone] Documents on File Type Date Recorded Patient Paper Rewinder Expl anation ADVANCE DIRECTIVE 05/17/2021 9:19 PM Care Teams Program Manager Relationship Specialty Start Date End Date Pierre Otto MD [address] [place] [address] [place] [id number] PCP - General Family Medicine 02/19/24
--- OUTSIDE RECORDS SUMMARY | 2025-03-04 13:58 | XMS_ITS | Continuity of Care Document ---
Author Organization [facility] Address [address] [place] [address] Phone Care Team Providers Care Global Risk Management Director Name Role Phone Charlie Hanna MD Unavailable Unavailable Advance Directives Directive Yes / No Effective Date File Name No Information Encounters Encounter Description Practice Location Reason(s) For Visit Diagnoses Date Provider Providers Copied on Encounter [facility], [address] [place] [address], [id number], tel:[phone] [facility] No Information Mar-0 5-200 3 Jacques Guerra. [address] [place] [address], [id number] , . tel:[phone] Family History Family Member Type Diagnosis Age At Onset No Information Payers Payer name Insurance type Covered alliance party ID Authoriza tion(s) No Information Social History [...]
--- OUTSIDE RECORDS SUMMARY | 2025-03-04 13:59 | XMS_ITS | Continuity of Care Document ---
Author Organization [facility] Address [address] [place] [address] Phone Care Team Providers Care State Assessed Properties Director Name Role Phone Charlie Hanna MD Unavailable Unavailable Advance Directives Directive Yes / No Effective Date File Name No Information Encounters Encounter Description Practice Location Reason(s) For Visit Diagnoses Date Provider Providers Copied on Encounter [facility], [address] [place] [address], [id number], tel:[phone] [facility] No Information Mar-0 5-200 3 Jacques Guerra. [address] [place] [address], [id number] , . tel:[phone] Family History Family Member Type Diagnosis Age At Onset No Information Payers Payer name Insurance type Covered democrat ID Authoriza tion(s) No Information Social History [...]
--- OUTSIDE RECORDS SUMMARY | 2025-03-04 13:59 | XMS_ITS | Continuity of Care Document ---
Author Organization [facility], [facility] Address [address] [place] [address] Phone Care Team Providers Care Journeyman Pipe Fitter Name Role Phone Chaitanya OD, Maxwell Unavailable [...] Diagnoses Date Provider Providers Copied on Encounter [facility], [facility], [address] [place], [place], [id number] , tel:[phone] [facility] decreased vision (chief complaint) decreased vision (chief complaint) Age-related nuclear cataract, bilateralPresbyopia 6 Chaitanya Arreola. [address] [facility], [place], [place], [id number] , [place]. tel: [phone] Family History Family Member Type Diagnosis Age [...] thritis Payers Payer name Insurance type Covered republican ID Authortrent yang(s) [facility] [id number] Social History Type Description Quantity Date Captured [...]
[2025-03-04 14:29] LABS: EDCOVIDSCREEN Negative (Negative); EDINFLUASCREEN Negative (Negative); EDINFLUBSCREEN Negative (Negative)
== END 2025-03-04 14:42 | disposition home or self-care (01) ==
PROVIDERS: PCP Family Medicine
DX: J18.9 Pneumonia, unspecified organism (principal); E03.9 Hypothyroidism, unspecified; J45.909 Unspecified asthma, uncomplicated; Z20.822 Contact with and (suspected) exposure to COVID-19
CPT/HCPCS: 71046; 87426; 87804; 99213; G0463

== ENCOUNTER 2025-07-16 16:35 | Emergency (ER) | payer MEDICARE, OTHER, SELFPAY ==
--- OUTSIDE RECORDS SUMMARY | 2025-07-16 16:37 | XMS_ITS | Clinical Summary ---
Author Organization [facility] Address [address] [place] [address] Care Team Providers Care Header Set Up Operator Name Role Phone Pierre Otto MD Primary Care Provider [phone] Allergies Active Allergy Reactions Criticality Noted Date Comments Azithromycin Rash Medium 05/04/2019 Rash Cefdinir Rash Medium 05/04/2019 Rash Cephalexin Shortness of breath High 05/04/2019 Rash, SOB Codeine Phosphate Vomiting Low 05/04/2019 GI Upset, Vomit Erythromycin Vomiting Low 05/04/2019 GI Upset, vomit Neomycin Sulfate Swelling Medium 05/04/2019 Swelling Other Other (See comments) Low 07/13/2022 Cats, cevallos pork Allergy testing [place] and corn products GI upset Penicillamine Shortness [...] Take 1 tablet by mouth daily Active mometasone-form oterol (DULERA 200) 200-5 mcg/actuation inhalerIndicati ons:Moderate persistent asthma without complication Inhale 2 puffs 2 (two) times a day Rinse mouth with water after use. Do not swallow. 3 each 3 07/22/20 24 2024 Active EPINEPHrine 0.3 mg/0.3 mL auto-injection syringeIndicati [...] DIRECTED 30 mL 3 02/11/20 25 Active methylPREDNISol one (MEDROL DOSEPACK) 4 mg Dosepack Take as directed on package. 21 tablet 03/10/20 25 Active Additional Information Patient not taking.Reported on 04/28/2025 albuterol HFA (PROVENTIL HFA,VENTOLIN HFA,PROAIR HFA) 90 mcg/actuation inhalerIndicati ons:Moderate persistent asthma without complication INHALE 2 PUFFS BY MOUTH EVERY 6 HOURS NEEDED FOR WHEEZING 8.5 g 2 03/20/20 25 Active levothyroxine (SYNTHROID) 25 mcg tabletIndicatio ns:Hypothyroidi sm, unspecified type TAKE 1 TABLET(25 MCG) BY MOUTH DAILY 100 tablet 04/17/20 25 Active montelukast (SINGULAIR) 10 mg tabletIndicatio ns:Seasonal allergies TAKE 1 TABLET(10 MG) BY MOUTH DAILY 100 tablet 1 07/10/20 25 Active montelukast (SINGULAIR) 10 mg tabletIndicatio ns:Seasonal allergies Take 1 tablet (10 mg total) by mouth daily 90 tablet 3 07/22/20 24 2024 Discontinued Active Problems Problem Noted Date Diagnosed Date Elevated blood pressure read ing in office without diagnosis of hypertension 04/28/2025 Overview (04/28/2025): Needs daily Home BP readings. May consider starting medication. Chronic pansinusitis 04/28/2025 Chronic pain of both knees 07/22/2024 Acute right-sided low back pain with right-sided sciatica 04/24/2023 Assessment & Plan (04/24/2023 1:55 PM CDT): Medrol dose pack Tramadol 50 mg tid prn no 30 Right calf pain 04/24/2023 Assessment & Plan (04/24/2023 1:55 PM CDT): Acute pain right calf Order a venous doppler Medicare annual wellness visit, subsequent 05/22 Assessment & Plan (10/26/2024 12:48 PM NATURAL FOODS CLERK): Patient here for annual Medicare wellness visit [...] 44.9 in adult 05/22/2022 Assessment & Plan (04/28/2025 12:24 PM CDT): Chronic. Uncontrolled. Goal: 150lb Recommend Nutritional every other Saturday Seminar. Recommended Medication :none Assessment & Plan (07/22/2024 10:11 AM CDT): [...] 11/14/2021 Assessment & Plan (11/14/2021 12:22 PM NATURAL FOODS CLERK): X ray left hip Full code status 05/12/2021 Assessment & Plan (05/12/2021 11:29 AM CDT): Discussed with patient approximately 20minutes End of life issues/Advanced Directives/Healthcare Surrogate. Discussed DNR. Encouraged to discuss further with family and consult attorney law clerk or complete [place] approved form, which I would be glad to assist them with completion. All questions answered. polst form filled out and signed Arthritis 04/07/2018 Assessment & Plan (11/03/2020 1:49 PM NATURAL FOODS CLERK): Patient is well controlled. Continue current treatment. [...] PRN. Assessment & Plan (11/14/2021 12:13 PM NATURAL FOODS CLERK): Refill albuterol Assessment & Plan (11/03/2020 1:45 PM NATURAL FOODS CLERK): stable Assessment & Plan (05/05/2020 1:47 PM CDT): Albuterol prn Refill epipen Cont singulair Assessment & Plan (11/04/2019 1:29 PM NATURAL FOODS CLERK): Stable No new orders Assessment & Plan [...] t4 Assessment & Plan (11/14/2021 12:13 PM NATURAL FOODS CLERK): tsh and free t4 6 months Assessment & Plan (05/12/2021 11:30 AM CDT): Check a tsh and free t4 Assessment & Plan (11/03/2020 1:45 PM NATURAL FOODS CLERK): Lab in 6 months Assessment & Plan (05/05/2020 1:47 PM CDT): lab Assessment & Plan (11/04/2019 1:28 PM NATURAL FOODS CLERK): Check lab in 6 months Assessment & Plan (05/06/2019 1:39 PM CDT): Patient is well controlled. Continue current treatment. Seasonal allergies 04/07/2018 Assessment & Plan (11/14/2021 12:14 PM NATURAL FOODS CLERK): Refill singulair Assessment & Plan (11/03/2020 1:45 PM NATURAL FOODS CLERK): Patient is well controlled. Continue current treatment. Assessment & Plan (11/04/2019 1:29 PM NATURAL FOODS CLERK): Patient is well controlled. Continue current treatment. [...] 04/24/2023 Assessment & Plan (11/13/2022 10:09 AM NATURAL FOODS CLERK): Medrol dose pack, take as directed on package Use albuterol inhaler for wheezing as needed every 4 hours Go to ER if worsening shortness of breath/trouble breathing Upper respiratory tract infection 11/13/2022 02/06/2023 Assessment & Plan (11/13/2022 10:10 AM NATURAL FOODS CLERK): Rapid covid and flu negative PCR pending [...] 05/22/2022 Assessment & Plan (11/14/2021 12:20 PM NATURAL FOODS CLERK): Order a us abdomen Encounters Date Type Department Care Team Description 04/28/2025 11:30 AM CDT Office Visit [facility] at [address] [address] Pierre Otto MD Chronic pansinusitis (Primary Dx); Elevated blood pressure reading in office without diagnosis of hypertension; Class 3 severe obesity due to excess calories without serious comorbidity with body mass index (BMI) of 40.0 to 44.9 in adult from Last 3 Months Immunizations Immunization Administration [...] you have a drink containing alcohol? Never 04/28/2025 Q2: How many drinks containi ng alcohol do you have on a typical day when you are drinking? Patient does not drink Q3: How often do you have si x or more drinks on one occasion? Never 04/28/2025 PHQ-2 Answer Date Recorded PHQ-2 Total Score (If total score is 3 or more points, staff should administer the PHQ-9) 0 10/22/2024 PHQ-9 Answer Date Recorded PHQ-9 Total Score 0 06/15/2024 Comments No Sex and Gender Information Value Date Recorded Sex Assigned at Not on file Legal Sex Female 9:13 PM NATURAL FOODS CLERK Gender Identity Female 05/02/2023 4:53 PM CDT Sexual Orientation Not on file Obstetrics History Para Term AB IAB SAB Ectopic Multiple Livin g Live Births 3 2 2 Date Outcome GA Total Labor Labor/2nd/3rd Weight Sex Type Anes PTL Dominique A1 A5 Name Clin Term Term Last Filed Vital Signs Vital Sign Reading Time Taken Comments Blood Pressure 153/89 04/28/2025 11:56 AM CDT Pulse 73 04/28/2025 11:56 AM CDT Temperature 36.4 C (97.6 F) 04/28/2025 11:56 AM CDT Respiratory Rate 14 04/28/2025 11:56 AM CDT Oxygen Saturation 99% 04/28/2025 11:56 AM CDT Inhaled Oxygen Concentration - - Weight 108 kg (238 lb) 04/28/2025 11:56 AM CDT Height 162.6 cm (5' 4) 04/28/2025 11:56 AM CDT Body Mass Index 40.85 04/28/2025 11:56 AM CDT Plan of Treatment Health Maintenance Due Date Last Done Comments Hepatitis B Screening 1972 Zoster Vaccine (1 of 2) 2004 Covid-19 Vaccine (3 2023-2 5 season) 2024 01/30/2021, 01/09/2021 Osteoporosis Screening-Bone Density Scan 05/01/2025 05/01/2023 Influenza Vaccine (#1) 2025 , 08/25/2021, 08/25/2021, Additional history exists Depression Screening 10/26/2025 10/26/2024, 06/15/2024, 06/15/2024, Additional [...] 12/08/2021, 03/25/2014 Colon Cancer Screening-DNA Stool Discontinued 12/08/19 22, 03/25/2014 Colon Cancer Screening-FIT Discontinued 12/08/2021, Colon Cancer Screening-Sigmoidoscopy Discontinued 12/08/2021, 03/25/2014 Pneumococcal vaccine 65+ Completed 05/22/2022, 10/18 Procedures Procedure Name Priority Date/Time Associated Diagnosis Comments SCREENING MAMMOGRAM BILATERAL W JANIS Schedule Routine, Read Routine (OP Routine) 12/04/2024 1:59 PM NATURAL FOODS CLERK Breast cancer screening by mammogram DEXA AXIAL SKELETON BONE DENSITY 1 OR MORE SITES Schedule Routine, Read Routine (OP Routine) 05/01/2023 10:51 AM CDT Menopausal and postmenopausal disorder Asymptomatic menopausal state COLONOSCOPY Routine 12/08/2021 HEPATITIS C ANTIBODY Routine 11/30/2021 10:32 AM NATURAL FOODS CLERK from Last 3 Months or Most Recently Relevant to Health Maintenance Results * SCREENING MAMMOGRAM BILATERAL W JANIS (12/04/2024 1:59 PM NATURAL FOODS CLERK) Anatomical Region Laterality Modality Breast Bilateral Mammography Impressions 12/04/2024 2:02 PM NATURAL FOODS CLERK BI-RADS ATLAS category (overall): 1 - Negative There is no mammographic evidence of malignancy. A 1 year screening mammogram is recommended. The patient has been or will be contacted. We recommend annual screening mammography for women at average risk of breast cancer beginning at age 40, based on guidelines of the [employer] (ACR Practice Parameter for the Performance of Screening and Diagnostic Mammography) and [employer] [place]. For women with and elevated risk of breast cancer, please refer to the ACR Practice Parameter for specific screening recommendations. The patient will be entered into a reminder system with a target due date of 1 year for her next screening exam. Narrative 12/04/2024 2:02 PM NATURAL FOODS CLERK SCREENING MAMMOGRAM BILATERAL W JANIS: 12/04/24 The [...] no suspicious change. us Pierre Otto MD IM MAMMO PROCEDURES Final Resul t * Dexa Axial Skeleton Bone Density 1 or 2 Site (05/01/2023 10:51 AM CDT) Anatomical Region Laterality Modality Body N/A Mammography 05/01/2023 12:3 3 PM CDT Narrative 05/01/2023 12:33 PM CDT EXAM DESCRIPTION: DEXA AXIAL SKELETON BONE DENSITY 1 OR MORE SITES REASON FOR STUDY: 67 y/o year old F with given history of screening. Senior Support Analyst/Model: AdAdapted A (S/N [id number]) CLINICAL INFORMATION: Current height: 62.5 inches Maximum [...] Fabiana Vigil M.D. TW: TW Report ID: [id number] Reading Location: [id number] Procedure Note Fabiana iVgil MD - 05/01/2023 EXAM DESCRIPTION: DEXA AXIAL SKELETON BONE DENSITY 1 OR MORE SITES REASON FOR STUDY: 67 y/o year old F with given history of screening. Senior Support Analyst/Model: Hologic Horizon A (S/N [id number]) CLINICAL INFORMATION: Current height: 62.5 inches Maximum [...] Fabiana Vigil M.D. TW: NANDO Report ID: [id number] Reading Location: [place] [address] Rich Mohr DO IMG DXA PROCEDURES Final Result * Colonoscopy (12/08/2021) Anatomical Region Laterality Modality Other Rich Mohr DO ENDOSCOPY PROCEDURES Fin al Result * Hepatitis C antibody (11/30/2021 10:32 AM NATURAL FOODS CLERK) Pathologist [facility] Hep C Ab Nonreactive Nonreactive RONN Comment: [...] on 2020. Blood 11/30/2021 10:3 2 AM NATURAL FOODS CLERK 11/30/2021 10:36 AM NATURAL FOODS CLERK us Gina Hill MD LAB MICROBIOLOGY - GENERA L ORDERABLES Final Result RONN [facility] [id number] [facility] Department [place] [address] from Last 3 Months or Most Recently Relevant to Health Maintenance Insurance MEDICARE [facility] MEDICARE [facility] MEDICARE [facility] Advance Directives For more information, please contact: [phone] Documents on File Type Date Recorded Patient Information Resource Consultant Expl anation ADVANCE DIRECTIVE 05/17/2021 9:19 PM Care Teams Header Set Up Operator Relationship Specialty Start Date End Date Pierre Otto MD [address] [facility] [address] [address] PCP - General Family Medicine 02/19/24
--- NOTE | 2025-07-16 16:43 | ED.FEMALEGU ---
HPI - Female Genitourinary General Chief complaint: Urogenital-Female Stated complaint: uti symptoms Time Seen by Provider: 07/16/25 16:43 Source: patient Mode of arrival: ambulatory Limitations: no limitations History of Present Illness HPI Narrative: Edith is a 69 year old female patient presenting to the clinic today with c/o possible UTI x1 day. She reports burning, frequency, urgency and some lower abdominal cramping. Has had low-grade temperature of 99? F. Denies any flank pain. Related Data Home Medications ?Medication ?Instructions ?Recorded ?Confirmed ?Last Taken ?Type albuterol sulfate 0.63 mg/3 mL 0.63 mg inhalation Q4H 07/07/22 08/03/24 Unknown History solution for nebulization azelastine 137 mcg (0.1 %) nasal 2 mcg intranasal DAILY 07/07/22 08/03/24 Unknown History spray cholecalciferol (vitamin D3) 50 50 mcg PO DAILY 07/07/22 08/03/24 Unknown History mcg (2,000 unit) tablet glucosamine sulfate 500 mg tablet 500 mg PO DAILY 07/07/22 08/03/24 Unknown History (Glucosamine) levothyroxine 25 mcg tablet 25 mcg PO DAILY 07/07/22 08/03/24 Unknown History mometasone-formoterol HFA 100 2 inh inhalation DAILY 07/07/22 08/03/24 Unknown History mcg-5 mcg/actuation aerosol inhaler (Dulera) montelukast 10 mg tablet 10 mg PO HS 08/03/24 08/03/24 Unknown History Allergies Allergy/AdvReac Type Severity Reaction Status Date / Time azithromycin Allergy Mild Hives Verified 07/16/25 16:53 cefdinir (From Omnicef) Allergy Mild Hives Verified 07/16/25 16:53 cephalexin (From Keflex) Allergy Mild Hives Verified 07/16/25 16:53 codeine Allergy Mild Hives Verified 07/16/25 16:53 erythromycin base (From AdvReac Intermediate Vomiting Verified 07/16/25 16:53 E-Mycin) Penicillins AdvReac Intermediate Dyspnea / Verified 07/16/25 16:53 SOB Review of Systems Review of Systems: Pertinent positives per HPI. Patient denies any fever, chills, rash, headache, visual changes, dizziness, cough, runny nose, sore throat, shortness of breath, chest pain, palpitations, nausea, vomiting, diarrhea, constipation PMFSH Past Medical History Medical History Hypothyroid Asthma Social History Social History Gender identity (if verbalized by the patient): Female Comments At the time of my signature, I reviewed and agree with the nursing past medical, surgical, social, and family history. There is no relevant family history pertinent to the patient complaint. Exam Narrative: General: Well-developed, morbidly obese, in no apparent distress. Head: Normocephalic, atraumatic. Cardio: Regular rate and rhythm, s1 and s2 normal, no murmur appreciated. Resp: Clear to auscultation bilaterally, no rhonchi, rales, wheezing or rubs. Abdomen: Soft, pliable, bowel sounds present in all quadrants, suprapubic area tender to palpation, no organomegly, no CVAT tenderness. Course Course Emergency Course: Portions of this record may have been created with voice recognition software. Level of Care: Express Care Visit Vital Signs Vital signs: Vital Signs Temperature 36.3 C L 07/16/25 16:46 Pulse Rate 70 07/16/25 16:46 Respiratory Rate 20 07/16/25 16:46 Blood Pressure 131/84 07/16/25 16:46 Pulse Oximetry 97 07/16/25 16:46 Oxygen Delivery Room Air 07/16/25 16:46 Temperature 36.3 C L 07/16/25 16:46 Pulse Rate 70 07/16/25 16:46 Respiratory Rate 20 07/16/25 16:46 Blood Pressure 131/84 07/16/25 16:46 Pulse Oximetry 97 07/16/25 16:46 Oxygen Delivery Room Air 07/16/25 16:46 Vital signs reviewed MDM - Female Genitourinary MDM Narrative Medical decision making narrative: At the time of visit patient is resting comfortably on the exam table. Patient appears to be nontoxic. C/o possible UTI x1 day. She reports burning, frequency, urgency and some lower abdominal cramping. Has had low-grade temperature of 99? F. Denies any flank pain. Labs: Urinalysis positive for leukocytes, nitrates, and blood. We will send urine for culture. Plan: I suspect patient has acute UTI. Prescription for Bactrim DS was sent to the pharmacy. Supportive measures were discussed with the patient and they voiced understanding discharge instructions and agrees to treatment plan. Return precautions reviewed Differential Diagnosis Differential diagnosis: Likely urinary tract infection and cystitis Lab Data Labs: Lab Results 07/16/25 Range/Units 16:55 POC Urine Color Yellow POC Urine Clarity Cloudy POC Urine pH 5.5 POC Ur Specif Abernathy 1.025 POC Urine Protein Negative (Negative) POC Ur Glucose (UA) Negative (Negative) POC Urine Ketones Negative (Negative) POC Urine Blood 1+ (Negative) POC Urine Nitrite Positive (Negative) POC Urine Bilirubin Negative (Negative) POC Urine Urobilinogen 0.2 POC U Leukocyte Esteras 1+ (Negative) Discharge Plan Discharge Clinical Impression: Urinary tract infection Qualifiers: Urinary tract infection type: acute cystitis Hematuria presence: with hematuria Qualified Code(s): N30.01 - Acute cystitis with hematuria Patient Disposition: Home Condition: Stable Instructions: Antibiotic Form, Urinary Tract Infection in Older Adults (ED) Additional Instructions: Urinalysis positive for leukocytes, nitrates, and blood. We will send urine for culture. Take Bactrim as prescribed Increase fluids and stay well hydrated Wipe front to back. May use wet wipes. Avoid tub baths If sexually active- pee before and after intercourse. Wear cotton panties Avoid tight clothing up against the genitals Follow up with your PCP in 1 week if symptoms persist. Patient Language: Tanzanian Prescriptions: New sulfamethoxazole-trimethoprim [Bactrim DS] 800-160 mg tablet 1 tablet PO Q12H 7 Days Qty: 14 0RF No Action montelukast 10 mg tablet 10 mg PO HS albuterol sulfate 0.63 mg/3 mL Solution For Nebulization 0.63 mg INHALATION Q4H glucosamine sulfate [Glucosamine] 500 mg Tablet 500 mg PO DAILY Rx Instructions: administer with a meal levothyroxine 25 mcg tablet 25 mcg PO DAILY azelastine 137 mcg (0.1 %) aerosol,spray 2 mcg INTRANASAL DAILY cholecalciferol (vitamin D3) 50 mcg (2,000 unit) Tablet 50 mcg PO DAILY Dulera 100-5 mcg/actuation HFA aerosol inhaler 2 inh INHALATION DAILY Follow-up/Referrals: Fam,MD Pierre [Primary Care Provider, Unknown] Time of Disposition: 16:58 Quality NIHSS Nursing Documentation ED NIHSS nursing documentation: reviewed/agree
[2025-07-16 16:46] VITALS: BP 131/84; PULSE 70; RESP 20; TEMP 36.3; O2SAT 97
[2025-07-16 16:58] LABS: EDUAAPPEAR Cloudy; EDUABILI Negative (Negative); EDUABLOOD 1+ (Negative); EDUACOLOR1 Yellow; EDUAGLUCOSE Negative (Negative); EDUAKETONE Negative (Negative); EDUALEUKO 1+ (Negative); EDUANITRATE Positive (Negative); EDUAPH 5.5; EDUAPROTEIN Negative (Negative); EDUASPGRAVITY 1.025; EDUAUROBILI 0.2
== END 2025-07-16 17:02 | disposition home or self-care (01) ==
PROVIDERS: Emergency Provider Nurse Practitioner Family; PCP Family Medicine
DX: N30.01 Acute cystitis with hematuria (principal); E03.9 Hypothyroidism, unspecified; J45.909 Unspecified asthma, uncomplicated
CPT/HCPCS: 81003; 87086; 99213; G0463

== ENCOUNTER 2025-09-12 17:29 | Emergency (ER) | payer MEDICARE, OTHER, SELFPAY ==
--- OUTSIDE RECORDS SUMMARY | 2015-11-22 08:45 | XMS_ITS | Continuity of Care Document ---
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[employer] Arc Name Role Phone Chaitanya OD, Maxwell Unavailable Unavailable Allergies, Adverse Reactions, Alerts Substance Reaction Status Criticality azithromycin Active No Information codeine Active No Information neomycin Active No Information cefdinir Active No Information erythromycin base Active No Informa tion CEPHALEXIN MONOHYDRATE Active No In formation PENICILLIN Active No Information Medications Medication Instructions Dosage Effective Dates (start - stop) Status Comments NASACORT AQ (unknown strength) Not Available - Active ASTELIN (unknown strength) Not Available - Active XYZAL (unknown strength) Not Available - Active LEVOTHYROXINE SODIUM (unknown strength) Not Available - Active DULERA (unknown strength) Not Available - Active Visine 0.05 % eye drops instill 1 drop PRN OU - Active Procedures Procedure Date EYE EXAM, NEW PATIENT MEDICAL 6 REFRACTION UPDATE Vision svcs frames purchases Trifocal Lens Progressive lens per lens Lens Polycarb Deluxe lens feature A/R Standard Advance Directives Directive Yes / No Effective Date File Name No Information Encounters Encounter Description Practice Location Reason(s) For Visit Diagnoses Date Provider Providers Copied on Encounter [facility], [facility], [address], [place], [id number] , tel:[phone] [facility] decreased vision (chief complaint) Age-related nuclear cataract, bilateralPresbyopia 6 Chaitanya Arreola. [address] [facility], [place], [place], [id number] , [place]. tel: [phone] Family History Family Member Type Diagnosis Age At Onset Problem (finding) No family hist ory of Macular degeneration Problem (finding) No family history of Gl [place] Problem (finding) No family history of Re tinal disease Mother Problem (finding) Problem (finding) No family history of Re spiratory disease Mother Problem (finding) Heart Disease Mother Problem (finding) hypertension Problem (finding) No family history of [place] Brother Problem (finding) Diabetes mellitus Brother Problem (finding) cataract Problem (finding) No family history of Ar thritis Payers Payer name Insurance type Covered alliance party ID Authorpapia celia(s) [facility] [id number] Social History Type Description Quantity Date Captured Comments Alcohol Use Details Unknown Caffeine Use Details Unknown Tobacco Use Status Never smoked tobacco 2015 Smoking Status Never smoker Non-Smoking Tobacco Use Details : No Details Available : No Details Available Sex Female Chief Complaint And Reason For Visit From encounter dated '11/22/2015 13:45'. decreased vision (chief complaint). Description: The 59 Year old female presents for evaluation of decreased vision in the right eye and left eye since last exam 1-2 yrs ago. It affects near vision cgls OU. Pt states DVA is good and stable c gls OU. The patient denies pain or discomfort and glare OU. Pt uses Visine PRN OU. Reason For Referral Reason For Referral No Information History Of Present Illness Encounter Date Complaint History Of Prese nt Illness decreased vision The 59 Year old female presents for evaluation of decreased vision in the right eye and left eye since last exam 1-2 yrs ago. It affects near vision c gls OU. Pt states DVA is good and stable c gls OU. The patient denies pain or discomfort and glare OU. Pt uses Visine PRN OU. Functional Status Date Functional Assessmen t No Information Instructions Date Instruction Additional Infor brian Impression/Plan - Ey es are healthy. No glaucoma or macular degeneration in either eye. Very mild cataracts, will watch until bothers vision. Update rx today optional. For occasional blurry vision, can use Tears PRN OU. Can check yearly unless problems. Follow up - Return i n 1 year with [facility] for Refract T & D. Assessments Type Assessment Date assessment Age-related nuclear cataract, bi lateral assessment Presbyopia Patient Care Teams Name Effective Dates (start - stop) Status Members No Information
--- NOTE | 2025-09-12 17:31 | ED_ITS ---
HPI - URI/Sore Throat General Chief Complaint: Upper Respiratory Infection Stated Complaint: URI Time Seen by Provider: 09/12/25 17:30 Source: patient Mode of arrival: ambulatory Limitations: no limitations History of Present Illness HPI Narrative: Edith is a 69-year-old female patient presenting to the clinic today with complaints of a productive cough with green phlegm, shortness of breath, sinus pressure and congestion, feeling feverish, and losing her voice for the past 6 days. She reports she has been using her inhalers and current medications for her symptoms. States that her temperature has been as high as 99? F. Denies any chest pain. Is able to speak in full sentences. History of asthma. Related Data Home Medications ?Medication ?Instructions ?Recorded ?Confirmed ?Last Taken ?Type azelastine 137 mcg (0.1 %) nasal 2 mcg intranasal JOHN Y 07/07/22 08/03/24 Unknown History spray cholecalciferol (vitamin D3) 50 50 mcg PO DAILY 08/03/24 Unknown History mcg (2,000 unit) tablet glucosamine sulfate 500 mg tablet 500 mg PO DAILY 06/1908/03/24 Unknown History (Glucosamine) levothyroxine 25 mcg tablet 25 mcg PO DAILY 07/07/22 0 08/03/24 Unknown History mometasone-formoterol HFA 100 2 inh inhalation DAILY 0 07/07/22 08/03/24 Unknown History mcg-5 mcg/actuation aerosol inhaler (Dulera) montelukast 10 mg tablet 10 mg PO HS 08/03/24 4 Unknown History Allergies Allergy/AdvReac Type Severity Reaction Status Date / Time azithromycin Allergy Mild Hives Verified 09/12/25 17:36 cefdinir (From Omnicef) Allergy Mild Hives Verified 09/12/25 17:36 cephalexin (From Keflex) Allergy Mild Hives Verified 09/12/25 17:36 codeine Allergy Mild Hives Verified 09/12/25 17:36 erythromycin base (From AdvReac Intermediate Vomiting Verified 09/12/25 17:36 E-Mycin) Penicillins AdvReac Intermediate Dyspnea / Verified 09/12/25 17:36 SOB sulfamethoxazole (From AdvReac Anxiety Verified 09/12/25 17:41 Bactrim) trimethoprim (From Bactrim) AdvReac Anxiety Verified 09/12/25 17:41 Review of Systems Review of Systems: Pertinent positives per HPI. Patient denies any rash, visual changes, dizziness, chest pain, palpitations, nausea, vomiting, diarrhea, constipation, abdominal pain, or any urinary issues. [facility] Past Medical History Medical History Hypothyroid Asthma Social History Social History Gender identity (if verbalized by the patient): Female Comments At the time of my signature, I reviewed and agree with the nursing past medical, surgical, social, and family history. There is no relevant family history pertinent to the patient complaint. Exam Narrative: General: Well-developed, obese, in no apparent distress Head: Normocephalic, atraumatic Eyes: Pupils equally round and reactive to light bilaterally, EOM intact, sclera and conjunctive clear, no discharge, lids normal Ears: TMs intact and congested, ear canals clear, no drainage, grossly hearing normal. Nose: Nares patent, green nasal discharge, severe inflammation, maxillary and frontal sinus tenderness. Mouth: Oral pharynx red without lesions or masses, good dentition, MMM. Postnasal drip Neck: Supple, trachea midline, no enlargement of anterior or posterior cervical nodes, no thyroid masses or goiter palpable. Cardio: Regular rate and rhythm, s1 and s2 normal, no murmur appreciated. Resp: Lung sounds mildly coarse with very faint inspiratory rhonchi, no rales, wheezing or rubs Course Course Emergency Course: Portions of this record may have been created with voice recognition software. Level of Care: Express Care Visit Vital Signs Vital signs: Vital signs reviewed MDM - URI/Sore Throat MDM Narrative Medical decision making narrative: At the time of visit patient is resting comfortably on the exam table. Patient appears to be nontoxic. Complaints of a productive cough with green phlegm, shortness of breath, sinus pressure and congestion, feeling feverish, and losing her voice for the past 6 days. States her temperature has been as high as 99? F. She reports she has been using her inhalers and current medications for her symptoms. Denies any chest pain. History of asthma. On exam patient has bilateral TMs congested, severe anterior nasal congestion with green drainage, maxillary and frontal sinus pressure, oral pharynx red with postnasal drip, lung sounds mildly coarse with faint inspiratory rhonchi in the bases on inspiration, heart rates regular rate and rhythm. Vital signs stable. Oxygenation 100% on room air. Patient is able speak in full sentences. Plan: I suspect patient has rhinosinusitis/bronchitis. Patient has multiple drug allergies. Discussed using Levaquin versus doxycycline and patient states that the Levaquin works better for her in this situation. Prescription for a 7 day course of Levaquin and Medrol Dosepak was sent to the pharmacy. Supportive measures were discussed with the patient and they voiced understanding discharge instructions and agrees to treatment plan. Return precautions reviewed Differential Diagnosis Differential diagnosis: Likely upper respiratory infection, otitis media, sinusitis, viral infection, bronchitis, influenza, pharyngitis and other (COVID) Discharge Plan Discharge Clinical Impression: Sinobronchitis Patient Disposition: Home Condition: Stable Instructions: Antibiotic Form, Acute Bronchitis (ED), Rhinosinusitis (ED) Additional Instructions: Take prescription medications only as prescribed-levofloxacin and Medrol Dosepak Continue inhalers as prescribed Cool-mist humidifier at the bedside. Increase fluids and stay well hydrated May take Tylenol or motrin as directed on bottle for pain/fever May use Flonase 1 spray in each nare daily May take OTC antihistamines such as Zyrtec or Claritin daily as directed on bottle May apply Vicks vapor rub to chest to open sinuses Sinus rinses for congestion Cepacol spray, cough drops, throat lozenges, warm tea with honey/lemon, gargle salt water to soothe throat BRAT diet for diarrhea Clear liquids x 24 hours then advance as tolerated for nausea/vomiting Go to the ED if you develop a worsening in your condition- high fever not controlled by Tylenol or Motrin, dehydration, weakness, lethargy, shortness of breath, or chest pain. Follow up with your PCP in 3-5 days if symptoms persist. Patient Language: French Prescriptions: New levofloxacin 500 mg tablet 500 mg PO DAILY 7 Days Qty: 7 0RF methylprednisolone [Medrol (Tin)] 4 mg tablets,dose pack See Rx Instructions PO .COMPLEX Qty: 21 0RF Rx Instructions: orally per package directions No Action montelukast 10 mg tablet 10 mg PO HS glucosamine sulfate [Glucosamine] 500 mg Tablet 500 mg PO DAILY Rx Instructions: administer with a meal levothyroxine 25 mcg tablet 25 mcg PO DAILY azelastine 137 mcg (0.1 %) aerosol,spray 2 mcg INTRANASAL DAILY cholecalciferol (vitamin D3) 50 mcg (2,000 unit) Tablet 50 mcg PO DAILY Dulera 100-5 mcg/actuation HFA aerosol inhaler 2 inh INHALATION DAILY Follow-up/Referrals: Fam,MD Pierre [Primary Care Provider, Unknown] Time of Disposition: 17:46 Quality NIHSS Nursing Documentation ED NIHSS nursing documentation: reviewed/agree
--- OUTSIDE RECORDS SUMMARY | 2025-09-12 17:31 | XMS_ITS | Encounter Summary ---
Author Organization [facility] Healthcare Address [address] [place] [id number] Care Team Providers Care Professional Athletes Coach Name Role Phone Pierre Otto MD Primary Care Provider [phone] Encounter Details Date Type Department Care Team (Late st Contact Info) Description 07/29/2025 Results Follow-Up [facility] Medical Group Family Medicine at [address] [place] [address] Pierre Otto MD [address] [place] [address] [address] [place] [address] SCAN - LABS Social History Tobacco Use Types Packs/Day Years [...] on file 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
--- OUTSIDE RECORDS SUMMARY | 2025-09-12 17:31 | XMS_ITS | Clinical Summary ---
Author Organization [facility] at the [facility] Address [address] [place] [address] Care Team Providers Care Interior Specialist Name Role Phone Pierre Otto MD Primary Care Provider [phone] Allergies Active Allergy Reactions Criticality Noted Date Comments Azithromycin Rash Medium 05/04/2019 Rash Sulfamethoxazole-Trimeth oprim Agitation Low 07/20/2025 Causes anxiety, dry mouth, and upset stomach Cefdinir Rash Medium 05/04/2019 Rash Cephalexin Shortness of breath High 05/04/2019 Rash, SOB Codeine Phosphate Vomiting Low 05/04/2019 GI Upset, Vomit Erythromycin Vomiting Low 05/04/2019 GI Upset, vomit Neomycin Sulfate Swelling Medium 05/04/2019 Swelling Other Other (See comments) Low 07/13/2022 Cats, cevallos pork Allergy testing [place] and corn products GI upset Penicillamine Shortness [...] Take 1 tablet by mouth daily Active EPINEPHrine 0.3 mg/0.3 mL auto-injection syringeIndicatio [...] & frequency) 75 mL 1 4 Active azelastine (ASTELIN) 137 mcg (0.1 %) nasal spray USE 1 SPRAY IN EACH NOSTRIL TWICE DAILY DIRECTED 30 mL 3 5 Active methylPREDNISolo ne (MEDROL DOSEPACK) 4 mg Dosepack Take as directed on package. 21 tablet 5 Active Additional Information Patient not taking.Reported on 04/28/2025 albuterol HFA (PROVENTIL HFA,VENTOLIN HFA,PROAIR HFA) 90 mcg/actuation inhalerIndicatio ns:Moderate persistent asthma without complication INHALE 2 PUFFS BY MOUTH EVERY 6 HOURS NEEDED FOR WHEEZING 8.5 g 2 5 Active levothyroxine (SYNTHROID) 25 mcg tabletIndication s:Hypothyroidism , unspecified type TAKE 1 TABLET(25 MCG) BY MOUTH DAILY 100 tablet 5 Active montelukast (SINGULAIR) 10 mg tabletIndication s:Seasonal allergies TAKE 1 TABLET(10 MG) BY MOUTH DAILY 100 tablet 1 5 Active mometasone-formo terol (Dulera) 200-5 mcg/actuation inhalerIndicatio ns:Moderate persistent asthma without complication INHALE 2 PUFFS BY MOUTH TWICE DAILY. RINSE MOUTH WITH WATER AFTER USE. DO NOT SWALLOW 39 g 1 5 Active Active Problems Problem Noted Date Diagnosed [...] 05/22 Assessment & Plan (10/26/2024 12:48 PM TABLE MAKER): Patient here for annual Medicare wellness visit [...] Free, Intramuscular 09/08/2015, 07/11/2020 Influenza, Unspecified 02/06/2023 [facility] SARS-CoV-2 Monovalent Vaccination (12+ Yrs) PURPLE 01/09/2021, [...] 11/14/2021 Assessment & Plan (11/14/2021 12:22 PM TABLE MAKER): X ray left hip Full code status 05/12/2021 Assessment & Plan (05/12/2021 11:29 AM CDT): Discussed with patient approximately 20minutes End of life issues/Advanced Directives/Healthcare Surrogate. Discussed DNR. Encouraged to discuss further with family and consult explosive ordnance disposal manager or complete [place] approved form, which I would be glad to assist them with completion. All questions answered. polst form filled out and signed Arthritis 04/07/2018 Assessment & Plan (11/03/2020 1:49 PM TABLE MAKER): Patient is well controlled. Continue current treatment. [...] PRN. Assessment & Plan (11/14/2021 12:13 PM TABLE MAKER): Refill albuterol Assessment & Plan (11/03/2020 1:45 PM TABLE MAKER): stable Assessment & Plan (05/05/2020 1:47 PM CDT): Albuterol prn Refill epipen Cont singulair Assessment & Plan (11/04/2019 1:29 PM TABLE MAKER): Stable No new orders Assessment & Plan [...] t4 Assessment & Plan (11/14/2021 12:13 PM TABLE MAKER): tsh and free t4 6 months Assessment & Plan (05/12/2021 11:30 AM CDT): Check a tsh and free t4 Assessment & Plan (11/03/2020 1:45 PM TABLE MAKER): Lab in 6 months Assessment & Plan (05/05/2020 1:47 PM CDT): lab Assessment & Plan (11/04/2019 1:28 PM TABLE MAKER): Check lab in 6 months Assessment & Plan (05/06/2019 1:39 PM CDT): Patient is well controlled. Continue current treatment. Seasonal allergies 04/07/2018 Assessment & Plan (11/14/2021 12:14 PM TABLE MAKER): Refill singulair Assessment & Plan (11/03/2020 1:45 PM TABLE MAKER): Patient is well controlled. Continue current treatment. Assessment & Plan (11/04/2019 1:29 PM TABLE MAKER): Patient is well controlled. Continue current treatment. [...] 04/24/2023 Assessment & Plan (11/13/2022 10:09 AM TABLE MAKER): Medrol dose pack, take as directed on package Use albuterol inhaler for wheezing as needed every 4 hours Go to ER if worsening shortness of breath/trouble breathing Upper respiratory tract infection 11/13/2022 02/06/2023 Assessment & Plan (11/13/2022 10:10 AM TABLE MAKER): Rapid covid and flu negative PCR pending [...] 05/22/2022 Assessment & Plan (11/14/2021 12:20 PM TABLE MAKER): Order a us abdomen Encounters Date Type Department Care Team Description 07/29/2025 Results Follow-Up [facility] Family Medicine at [address] [place] [phone] Pierre Otto MD SCAN - LABS 07/21/2025 Telephone [facility] Family Medicine at [address] [place] [address] Pierre Otto MD Med Refill 07/20/2025 Nurse Triage [facility] Family Medicine at [address] [place] [phone] Pierre Otto MD from Last 3 Months Immunizations Immunization Administration [...] on file 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 Gender Identity Female 05/02/2023 4:53 PM CDT [...] 1972 Zoster Vaccine (1 of 2) 2004 Osteoporosis Screening-Bone Density Scan 05/01/2025 05/01/2023 Covid-19 Vaccine (3 - 2024-2 6 season) 2025 01/30/2021, 01/09/2021 Influenza Vaccine (#1) 2025 , 08/25/2021, 08/25/2021, [...] Procedure Name Priority Date/Time Associated Diagnosis Comments SCAN - LABS 07/16/2025 SCREENING MAMMOGRAM BILATERAL W JANIS Schedule Routine, Read Routine (OP Routine) 12/04/2024 1:59 PM TABLE MAKER Breast cancer screening by mammogram DEXA AXIAL SKELETON BONE DENSITY 1 OR MORE SITES Schedule Routine, Read Routine (OP Routine) 05/01/2023 10:51 AM CDT Menopausal and postmenopausal disorder Asymptomatic menopausal state COLONOSCOPY Routine 12/08/2021 HEPATITIS C ANTIBODY Routine 11/30/2021 10:32 AM TABLE MAKER from Last 3 Months or Most Recently Relevant to Health Maintenance Results * SCAN - LABS (07/16/2025) us Pierre Otto MD Final Result * SCREENING MAMMOGRAM BILATERAL W JANIS (12/04/2024 1:59 PM TABLE MAKER) Anatomical Region Laterality Modality Breast Bilateral Mammography Impressions 12/04/2024 2:02 PM TABLE MAKER BI-RADS ATLAS category (overall): 1 - Negative There is no mammographic evidence of malignancy. A 1 year screening mammogram is recommended. The patient has been or will be contacted. We recommend annual screening mammography for women at average risk of breast cancer beginning at age 40, based on guidelines of the [place] [employer] (ACR Practice Parameter for the Performance of Screening and Diagnostic Mammography) and [place] [employer]. For women with and elevated risk of breast cancer, please refer to the ACR Practice Parameter for specific screening recommendations. The patient will be entered into a reminder system with a target due date of 1 year for her next screening exam. Narrative 12/04/2024 2:02 PM TABLE MAKER SCREENING MAMMOGRAM BILATERAL W JANIS: 12/04/24 The [...] old F with given history of screening. Rating Officer/Model: Whisbi A (S/N [id number]) CLINICAL INFORMATION: Current height: 62.5 inches Maximum [...] Fabiana Vigil M.D. TW: NANDO Report ID: [id number] Reading Location: [id number] Procedure Note Fabiana Vigil MD - 05/01/2023 EXAM DESCRIPTION: DEXA AXIAL SKELETON BONE DENSITY 1 OR MORE SITES REASON FOR STUDY: 67 y/o year old F with given history of screening. Rating Officer/Model: Whisbi A (S/N [id number]) CLINICAL INFORMATION: Current height: 62.5 inches Maximum [...] Fabiana Vigil M.D. TW: TW Report ID: [id number] Reading Location: [place] [address] Rich Mohr DO IMG DXA PROCEDURES Final Result * Colonoscopy (12/08/2021) Anatomical Region Laterality Modality Other Rich Mohr DO ENDOSCOPY PROCEDURES Fin al Result * Hepatitis C antibody (11/30/2021 10:32 AM TABLE MAKER) Pathologist [facility] Hep C Ab Nonreactive Nonreactive RONN STRAUSS [...] on 2020. Blood 11/30/2021 10:3 2 AM TABLE MAKER 11/30/2021 10:36 AM TABLE MAKER Gina Hill MD LAB MICROBIOLOGY - [facility] L ORDERABLES Final Result RONN [id number] [facility] Department [place] [address] from Last 3 Months or Most Recently Relevant to Health Maintenance Insurance MEDICARE [facility] Address: [address] [address] [place] [address] [facility] MEDICARE [facility] MEDICARE [facility] Advance Directives For more information, please contact: [phone] Documents on File Type Date Recorded Patient Electronic Data Interchange Specialist Expl anation ADVANCE DIRECTIVE 05/17/2021 9:19 PM Care Teams Interior Specialist Relationship Specialty Start Date End Date Pierre Otto MD [address] [facility] [address] [address] PCP - General Family Medicine 02/19/24
--- OUTSIDE RECORDS SUMMARY | 2025-09-12 17:33 | XMS_ITS ---
Author Organization Unknown ENCOUNTERS Encounter Performer Location Date Diagnosis Diagnosis Status Outpatient EVELYN ALVAREZ [address] [place] [address] [id number] RTN Outpatient [address] [address] [id number] *Note: Encounters from your own facility or health system may be excluded. Allergies, Adverse Reactions, Alerts Allergen Type Severity Identification Date Medications Name Date Quantity Days Supplied GPI Number
[2025-09-12 17:36] VITALS: BP 141/81; PULSE 73; RESP 18; TEMP 36.4; O2SAT 100
== END 2025-09-12 17:49 | disposition home or self-care (01) ==
PROVIDERS: Emergency Provider Nurse Practitioner Family; PCP Family Medicine
DX: J32.9 Chronic sinusitis, unspecified (principal); J40 Bronchitis, not specified as acute or chronic; J45.909 Unspecified asthma, uncomplicated; E03.9 Hypothyroidism, unspecified
CPT/HCPCS: 99213; G0463